=== PATIENT | male | born 1945 | race Two or more races ===

== ENCOUNTER 2016-02-27 14:06 | Emergency (ER) | payer MEDICARE, MEDICAID ==
[~2016-02-27 14:06] MED LIST: /CELE20CA OR; /FENO48TA OR; /METH500TA OR; CETI5TAB2 OR; FISH1000 OR; LIPI10TA OR; MULTIVIT OR; NABU500T OR; PRIL20CA OR; vicoden PO
--- NOTE | 2016-02-27 14:53 | EDDOCDS ---
Physician Documentation [facility] Name: Jonnie Clark Age: 70 yrs Sex: Male : 1945 Arrival Date: 02/27/2016 Time: 14:06 Bed TR7 Private MD: Mauro Almodovar MD Disposition: 02/27/16 14:43 Discharged to Home/Self Care. Impression: Encounter for change or removal of surgical wound dressing, Paresthesia of skin. - Condition is Stable. - Discharge Instructions: Dressing Change, Idmc-ln-Wbgu, Incision Care, Flyj-si-Nuko, Paresthesia, Aofj-sa-Kaap. - Medication Reconciliation, Local Pharmacy Hours form. - Follow up: Mauro Almodovar; When: Call to arrange an appointment; Reason: Further diagnostic work-up, Recheck today's complaints, Continuance of care. Follow up: [facility] ([facility]); When: As previously arranged; Reason: Further diagnostic work-up, Recheck today's complaints, Continuance of care. - Problem is new. - Symptoms are unchanged. Historical: - Allergies: no known allergies; - Home Meds: 1. allopurinol 100 mg oral tab 2 times per day 2. Lipitor 40 mg oral tab once daily 3. omeprazole 40 mg oral cpDR once daily 4. aspirin 81 mg Oral tab once daily 5. Fish Oil Oral twice a day 6. oxycodone-acetaminophen 10-325 mg Oral tab has not taken since surgery 7. Aleve 220 mg oral cap as needed (Last dose: 02/27/2016) - PMHx: Gout; Hypercholesterolemia; - PSHx: back surgery; neck fusion; tendon repair- right leg; right shoulder; left shoulder; - Social history: Smoking status: Patient states former smoker of tobacco. No barriers to communication noted, The patient speaks fluent [place] Citizen, Speaks appropriately for age. - Family history: Not pertinent. - : Exposure Risk Screening: None identified. Home medication list is obtained from the patient. Vital Signs: 02/26 14:10 BP 84 / 67; Pulse 96; Resp 18 S; Temp 98.7(O); Pulse Ox 97% on R/A; Weight 129.73 kg / gr2 286.01 lbs (R); Height 6 ft. 0 in. (182.88 cm) (R); Pain 2/10; 14:18 BP 133 / 72; ead 14:10 Body Mass Index 38.79 (129.73 kg, 182.88 cm) gr2 MDM: 14:42 Financial registration complete. lg Signatures: Melania Garland, Reg Reg lg Earl Nash PA PA btw Jennifer Draper,RN RN ead MTDD
--- NOTE | 2016-02-27 14:53 | EDDOCDS ---
Nurse's Notes [facility] Name: Jonnie Clark Age: 70 yrs Sex: Male : 1945 Arrival Date: 02/27/2016 Time: 14:06 Bed TR7 Private MD: Mauro Almodovar MD Diagnosis: Encounter for change or removal of surgical wound dressing;Paresthesia of skin Presentation: 02/26 14:14 Presenting complaint: Patient states: pt had right shoulder operation on Saturday by Gregorio Montalvo at [facility]. Pt states he is unable to perform dressing changes at home. Pt also reporting numbness in right pinky and ring finger, has decreased since operation. Adult Sepsis Screening: The patient does not have new or worsening altered mentation. Patient's respiratory rate is less than 22. Systolic blood pressure is less than or equal to 100 (1 point). Patient has a qSOFA score of 1- Negative Sepsis Screen. Suicide/Homicide risk assessment- the patient denies having any suicidal and/or homicidal ideations and does not present with any other emotional, behavioral or mental health complaints. 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 Transition of care: patient was not received from another setting of care. 14:14 Method Of Arrival: Walkin/Carried/Asstd ead 14:14 Acuity: ERMELINDA Level 3 ead Triage Assessment: 14:18 General: Appears in no apparent distress, comfortable, Behavior is appropriate for age, ead cooperative. Neurological: Level of Consciousness is awake, alert, obeys commands, Oriented to person, place, time. Respiratory: Airway is patent Respiratory effort is even, unlabored. Derm: Skin is pink, warm & dry. Musculoskeletal: pt has shoulder sling and immobilizer to right shoulder. 14:18 Pain: Denies pain. Derm: incision sites to right shoulder show no drainage, stitches in ead place. Historical: - Allergies: no known allergies; - Home Meds: 1. allopurinol 100 mg oral tab 2 times per day 2. Lipitor 40 mg oral tab once daily 3. omeprazole 40 mg oral cpDR once daily 4. aspirin 81 mg Oral tab once daily 5. Fish Oil Oral twice a day 6. oxycodone-acetaminophen 10-325 mg Oral tab has not taken since surgery 7. Aleve 220 mg oral cap as needed (Last dose: 02/27/2016) - PMHx: Gout; Hypercholesterolemia; - PSHx: back surgery; neck fusion; tendon repair- right leg; right shoulder; left shoulder; - Social history: Smoking status: Patient states former smoker of tobacco. No barriers to communication noted, The patient speaks fluent Bermudian, Speaks appropriately for age. - Family history: Not pertinent. - : Exposure Risk Screening: None identified. Home medication list is obtained from the patient. Screenin:51 Screening information is obtained from the patient. Fall risk: No risks identified. ead Assistance ADL's: requires no assistance with activities of daily living. Abuse/DV Screen: The patient / caregiver reports he/she is: not in a situation that causes fear, pain or injury. Nutritional screening: No deficits noted. home support is adequate. 14:52 Advance Directives: Currently, there is no health care proxy. There is no Power of ead Special Inspector. Assessment: 14:51 General: Appears in no apparent distress, comfortable, Behavior is appropriate for age, ead cooperative. Respiratory: Airway is patent Respiratory effort is even, unlabored. Derm: Skin is pink, warm & dry. Vital Signs: 14:10 BP 84 / 67; Pulse 96; Resp 18 S; Temp 98.7(O); Pulse Ox 97% on R/A; Weight 129.73 kg gr2 (R); Height 6 ft. 0 in. (182.88 cm) (R); Pain 2/10; 14:18 BP 133 / 72; ead 14:10 Body Mass Index 38.79 (129.73 kg, 182.88 cm) gr2 Vitals: 14:10 Log In Time: February 27, 2016 at 14:10. gr2 ED Course: 14:09 Patient visited by Roseanne Ovalles. gr2 14:09 Mauro Almodovar is Private Physician. gr2 14:09 Patient moved to Waiting gr2 14:12 Patient visited by Roseanne Ovalles. gr2 14:12 Patient moved to Pre RCE gr2 14:13 Patient moved to Triage 1 jc4 14:17 Earl Nash PA is PHCP. btw 14:17 Avi Parham DO is Attending Physician. btw 14:17 Triage Initiated ead 14:18 Patient visited by Earl Nash PA. btw 14:42 Mauro Almodovar is Referral Physician. btw 14:43 [facility] ([facility]) is Referral Physician. btw 14:50 Patient moved to TR7 ar3 14:51 The patient / caregiver is instructed regarding the plan of care and ED course. ead 14:51 No IV's were initiated during this patient's visit. No procedures done that require ead assistance. Order Results: There are currently no results for this order. Outcome: 14:43 Discharge ordered by Provider. btw 14:51 Discharge Assessment: Patient awake and alert. obeys commands, Oriented to person, ead place and time. patient administered narcotics - no. The following High Risk Discharge criteria are identified: None. Discharged to home ambulatory. Condition: unchanged. Discharge instructions given to patient, Instructed on discharge instructions, follow up and referral plans. Demonstrated understanding of instructions, Pt was receptive of discharge instructions/ teaching. No special radiology studies were completed. Property sent home with patient. 14:52 Patient left the ED. ead Signatures: Mireille Xavier, ELIO REMOTE MEDICAL CODER ar3 Earl Nash PA PA btw Khushbu Sher, RN RN jc4 Roseanne Ovalles 2 Jennifer Draper,RN RN ead MTDD
--- NOTE | 2016-02-29 15:53 | EDDOCDS ---
Nurse's Notes [facility] Name: Jonnie Clark Age: 70 yrs Sex: Male : 1945 Arrival Date: 02/27/2016 Time: 14:06 Bed TR7 Private MD: Mauro Almodovar MD Diagnosis: Encounter for change or removal of surgical wound dressing;Paresthesia of skin Presentation: 02/26 14:14 Presenting complaint: Patient states: pt had right shoulder operation on Saturday by Gregorio Montalvo at [facility]. Pt states he is unable to perform dressing changes at home. Pt also reporting numbness in right pinky and ring finger, has decreased since operation. Adult Sepsis Screening: The patient does not have new or worsening altered mentation. Patient's respiratory rate is less than 22. Systolic blood pressure is less than or equal to 100 (1 point). Patient has a qSOFA score of 1- Negative Sepsis Screen. Suicide/Homicide risk assessment- the patient denies having any suicidal and/or homicidal ideations and does not present with any other emotional, behavioral or mental health complaints. 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 Transition of care: patient was not received from another setting of care. 14:14 Method Of Arrival: Walkin/Carried/Asstd ead 14:14 Acuity: ERMELINDA Level 3 ead Triage Assessment: 14:18 General: Appears in no apparent distress, comfortable, Behavior is appropriate for age, ead cooperative. Neurological: Level of Consciousness is awake, alert, obeys commands, Oriented to person, place, time. Respiratory: Airway is patent Respiratory effort is even, unlabored. Derm: Skin is pink, warm & dry. Musculoskeletal: pt has shoulder sling and immobilizer to right shoulder. 14:18 Pain: Denies pain. Derm: incision sites to right shoulder show no drainage, stitches in ead place. Historical: - Allergies: no known allergies; - Home Meds: 1. allopurinol 100 mg oral tab 2 times per day 2. Lipitor 40 mg oral tab once daily 3. omeprazole 40 mg oral cpDR once daily 4. aspirin 81 mg Oral tab once daily 5. Fish Oil Oral twice a day 6. oxycodone-acetaminophen 10-325 mg Oral tab has not taken since surgery 7. Aleve 220 mg oral cap as needed (Last dose: 02/27/2016) - PMHx: Gout; Hypercholesterolemia; - PSHx: back surgery; neck fusion; tendon repair- right leg; right shoulder; left shoulder; - Social history: Smoking status: Patient states former smoker of tobacco. No barriers to communication noted, The patient speaks fluent Monegasque, Speaks appropriately for age. - Family history: Not pertinent. - : Exposure Risk Screening: None identified. Home medication list is obtained from the patient. Screenin:51 Screening information is obtained from the patient. Fall risk: No risks identified. ead Assistance ADL's: requires no assistance with activities of daily living. Abuse/DV Screen: The patient / caregiver reports he/she is: not in a situation that causes fear, pain or injury. Nutritional screening: No deficits noted. home support is adequate. 14:52 Advance Directives: Currently, there is no health care proxy. There is no Power of ead [employer]. Assessment: 14:51 General: Appears in no apparent distress, comfortable, Behavior is appropriate for age, ead cooperative. Respiratory: Airway is patent Respiratory effort is even, unlabored. Derm: Skin is pink, warm & dry. Vital Signs: 14:10 BP 84 / 67; Pulse 96; Resp 18 S; Temp 98.7(O); Pulse Ox 97% on R/A; Weight 129.73 kg gr2 (R); Height 6 ft. 0 in. (182.88 cm) (R); Pain 2/10; 14:18 BP 133 / 72; ead 14:10 Body Mass Index 38.79 (129.73 kg, 182.88 cm) gr2 Vitals: 14:10 Log In Time: February 27, 2016 at 14:10. gr2 ED Course: 14:09 Patient visited by Roseanne Ovalles. gr2 14:09 Mauro Almodovar is Private Physician. gr2 14:09 Patient moved to Waiting gr2 14:12 Patient visited by Roseanne Ovalles. gr2 14:12 Patient moved to Pre RCE gr2 14:13 Patient moved to Triage 1 jc4 14:17 Earl Nash PA is PHCP. btw 14:17 Avi Parham DO is Attending Physician. btw 14:17 Triage Initiated ead 14:18 Patient visited by Earl Nash PA. btw 14:42 Mauro Almodovar is Referral Physician. btw 14:43 [facility] ([facility]) is Referral Physician. btw 14:50 Patient moved to TR7 ar3 14:51 The patient / caregiver is instructed regarding the plan of care and ED course. ead 14:51 No IV's were initiated during this patient's visit. No procedures done that require ead assistance. 15:24 [facility] Payment Agreement was scanned into [employer] and attached to record. lg 02/27 03:56 T-Sheet-- Draft Copy was scanned into [employer] and attached to record. hs2 11:11 T-Sheet-- Draft Copy was scanned into [employer] and attached to record. gb Order Results: There are currently no results for this order. Outcome: 02/26 14:43 Discharge ordered by Provider. btw 14:51 Discharge Assessment: Patient awake and alert. obeys commands, Oriented to person, ead place and time. patient administered narcotics - no. The following High Risk Discharge criteria are identified: None. Discharged to home ambulatory. Condition: unchanged. Discharge instructions given to patient, Instructed on discharge instructions, follow up and referral plans. Demonstrated understanding of instructions, Pt was receptive of discharge instructions/ teaching. No special radiology studies were completed. Property sent home with patient. 14:52 Patient left the ED. ead Signatures: Luanne Crawford, Reg Reg gb Melania Garland, Reg Reg lg Mireille Xavier, [employer] SPECIAL EDUCATION TEACHER [employer] SPECIAL EDUCATION TEACHER ar3 Earl Nash PA PA btw Khushbu Sher RN RN jc4 Roseanne Ovalles 2 Jennifer Draper RN RN ead Tasha Edouard, Reg Reg hs2 Chart Complete MTDD
--- NOTE | 2016-02-29 15:53 | EDDOCDS ---
Physician Documentation [facility] Name: Jonnie Clark Age: 70 yrs Sex: Male : 1945 Arrival Date: 02/27/2016 Time: 14:06 Bed TR7 Private MD: Mauro Almodovar MD Disposition: 02/27/16 14:43 Discharged to Home/Self Care. Impression: Encounter for change or removal of surgical wound dressing, Paresthesia of skin. - Condition is Stable. - Discharge Instructions: Dressing Change, Rvry-qn-Sxwp, Incision Care, Abkl-dg-Npjd, Paresthesia, Azsu-aw-Cwhd. - Medication Reconciliation, Local Pharmacy Hours form. - Follow up: Mauro Almodovar; When: Call to arrange an appointment; Reason: Further diagnostic work-up, Recheck today's complaints, Continuance of care. Follow up: [facility] ([facility]); When: As previously arranged; Reason: Further diagnostic work-up, Recheck today's complaints, Continuance of care. - Problem is new. - Symptoms are unchanged. Historical: - Allergies: no known allergies; - Home Meds: 1. allopurinol 100 mg oral tab 2 times per day 2. Lipitor 40 mg oral tab once daily 3. omeprazole 40 mg oral cpDR once daily 4. aspirin 81 mg Oral tab once daily 5. Fish Oil Oral twice a day 6. oxycodone-acetaminophen 10-325 mg Oral tab has not taken since surgery 7. Aleve 220 mg oral cap as needed (Last dose: 02/27/2016) - PMHx: Gout; Hypercholesterolemia; - PSHx: back surgery; neck fusion; tendon repair- right leg; right shoulder; left shoulder; - Social history: Smoking status: Patient states former smoker of tobacco. No barriers to communication noted, The patient speaks fluent Peruvian, Speaks appropriately for age. - Family history: Not pertinent. - : Exposure Risk Screening: None identified. Home medication list is obtained from the patient. Vital Signs: 02/26 14:10 BP 84 / 67; Pulse 96; Resp 18 S; Temp 98.7(O); Pulse Ox 97% on R/A; Weight 129.73 kg / gr2 286.01 lbs (R); Height 6 ft. 0 in. (182.88 cm) (R); Pain 03/30; 14:18 BP 133 / 72; ead 14:10 Body Mass Index 38.79 (129.73 kg, 182.88 cm) gr2 MDM: 14:42 Financial registration complete. lg 15:24 [facility] Payment Agreement was scanned into [employer] and attached to record. lg 02/27 03:56 T-Sheet-- Draft Copy was scanned into [employer] and attached to record. hs2 11:11 T-Sheet-- Draft Copy was scanned into [employer] and attached to record. gb Signatures: Luanne Crawford, Reg Reg gb Melania Garland, Reg Reg lg Earl Nash PA PA btw Dunaway, Emily, RN RN eaTasha Natarajan, Reg Reg hs2 The chart was reviewed and I authenticate all verbal orders and agree with the evaluation and treatment provided.Attachments: 02/26 15:24 [facility] Payment Agreement lg 11:11 T-Sheet-- Draft Copy gb Chart Complete MTDD
--- NOTE | 2016-02-29 15:53 | EDDOCDS ---
Physician Documentation [facility] Name: Jonnie Clark Age: 70 yrs Sex: Male : 1945 Arrival Date: 02/27/2016 Time: 14:06 Bed TR7 Private MD: Mauro Almodovar MD Disposition: 02/27/16 14:43 Discharged to Home/Self Care. Impression: Encounter for change or removal of surgical wound dressing, Paresthesia of skin. - Condition is Stable. - Discharge Instructions: Dressing Change, Znme-lh-Gbyf, Incision Care, Xvbf-gl-Ubwp, Paresthesia, Wzwz-ug-Cgiw. - Medication Reconciliation, Local Pharmacy Hours form. - Follow up: Mauro Almodovar; When: Call to arrange an appointment; Reason: Further diagnostic work-up, Recheck today's complaints, Continuance of care. Follow up: [facility] ([facility]); When: As previously arranged; Reason: Further diagnostic work-up, Recheck today's complaints, Continuance of care. - Problem is new. - Symptoms are unchanged. Historical: - Allergies: no known allergies; - Home Meds: 1. allopurinol 100 mg oral tab 2 times per day 2. Lipitor 40 mg oral tab once daily 3. omeprazole 40 mg oral cpDR once daily 4. aspirin 81 mg Oral tab once daily 5. Fish Oil Oral twice a day 6. oxycodone-acetaminophen 10-325 mg Oral tab has not taken since surgery 7. Aleve 220 mg oral cap as needed (Last dose: 02/27/2016) - PMHx: Gout; Hypercholesterolemia; - PSHx: back surgery; neck fusion; tendon repair- right leg; right shoulder; left shoulder; - Social history: Smoking status: Patient states former smoker of tobacco. No barriers to communication noted, The patient speaks fluent Albanian, Speaks appropriately for age. - Family history: Not pertinent. - : Exposure Risk Screening: None identified. Home medication list is obtained from the patient. Vital Signs: 02/26 14:10 BP 84 / 67; Pulse 96; Resp 18 S; Temp 98.7(O); Pulse Ox 97% on R/A; Weight 129.73 kg / gr2 286.01 lbs (R); Height 6 ft. 0 in. (182.88 cm) (R); Pain 03/30; 14:18 BP 133 / 72; ead 14:10 Body Mass Index 38.79 (129.73 kg, 182.88 cm) gr2 MDM: 14:42 Financial registration complete. lg 15:24 [facility] Payment Agreement was scanned into [employer] and attached to record. lg 02/27 03:56 T-Sheet-- Draft Copy was scanned into [employer] and attached to record. hs2 11:11 T-Sheet-- Draft Copy was scanned into [employer] and attached to record. gb Signatures: Luanne Crawford, Reg Reg gb Melania Garland, Reg Reg lg Earl Nash PA PA btw Dunaway, Emily, RN RN eaTasha Natarajan, Reg Reg hs2 The chart was reviewed and I authenticate all verbal orders and agree with the evaluation and treatment provided.Attachments: 02/26 15:24 [facility] Payment Agreement lg 11:11 T-Sheet-- Draft Copy gb Chart Complete MTDD
== END 2016-02-27 14:52 | disposition home or self-care (01) ==
LOC: M ED 14:06
DX: R20.2 Paresthesia of skin (principal); Z48.01 Encounter for change or removal of surgical wound dressing; M10.9 Gout, unspecified; E78.00 Pure hypercholesterolemia, unspecified; Z87.39 Personal history of other diseases of the musculoskeletal system and connective tissue; Z87.891 Personal history of nicotine dependence; Z79.82 Long term (current) use of aspirin; Z79.899 Other long term (current) drug therapy

== ENCOUNTER 2016-03-16 12:19 | Outpatient (RCR) | payer MEDICARE, MEDICAID | END 2016-03-20 | LOC: M PT 12:19 | PROVIDERS: ATTEND Orthopaedic Surgery | DX: Z51.89 Encounter for other specified aftercare (principal); S46.011D Strain of muscle(s) and tendon(s) of the rotator cuff of right shoulder, subsequent encounter; Z98.890 Other specified postprocedural states; Y93.9 Activity, unspecified; Y92.9 Unspecified place or not applicable; Y99.9 Unspecified external cause status; X58.XXXD Exposure to other specified factors, subsequent encounter | CPT/HCPCS: 97110; 97140; 97161; G8984; G8985 ==

== ENCOUNTER → 2016-04-04 | Outpatient (CLI) | payer MEDICARE, MEDICAID ==
--- NOTE | 2016-04-04 10:37 | REP ---
Clinical: Renal lesion. Technique: Real time zendejas scale and color evaluation using curved array transducer. Findings: The bilateral kidneys are relatively normal in contour, size, echogenicity, and reniform shape without hydronephrosis, nephrolithiasis, perinephric collection, or renal mass lesion. Right kidney measures 12.7 x 4.8 x 4.5 cm and includes 1.4 cm simple upper pole cyst. Left kidney measures 12.6 x 5.6 x 6.2 cm without cyst. Bladder is incompletely distended and grossly unremarkable. Prostate gland measures approximately 3.7 x 3.4 x 2.7 cm. Impression: 1.4 cm simple cyst upper pole right kidney. Otherwise unremarkable renal ultrasound. Signed by Kevin Whipple MD 04/04/2016 10:30 A
--- NOTE | 2016-04-04 15:21 | REP ---
DUPLEX DOPPLER VENOUS ULTRASOUND BILATERAL LOWER EXTREMITIES WITH EVALUATION FOR VENOUS REFLUX: Real-time compression and duplex Doppler interrogation of bilateral lower extremities deep venous systems is performed. Bilaterally, common femoral, superficial femoral and popliteal veins are fully compressible with transducer pressure and demonstrate normal spontaneous and phasic flow without evidence of deep venous thrombosis. Evaluation for venous reflux in the right lower extremity demonstrates reflux in the common femoral vein. There is no evidence of an anterior accessory greater saphenous vein. There is reflux in the greater saphenous vein at the saphenofemoral junction with a duration of 3.3 seconds, diameter of that vessel is 7 mm. There is no reflux in the greater saphenous vein at the mid thigh which has a diameter of 5 mm, nor in the greater saphenous vein at the level of the knee which has a diameter of 4 mm. There is reflux in the proximal and mid superficial femoral vein. There is no reflux in the distal superficial femoral vein, popliteal vein or lesser saphenous vein, which has a diameter of 4 mm. Multiple collateral vessels are seen communicating with the proximal to mid greater saphenous vein, with minimal reflux. Evaluation for reflux in the left lower extremity demonstrates reflux in the common femoral vein. There is no anterior accessory greater saphenous vein present. There is reflux in the greater saphenous vein at the saphenofemoral junction with a duration of 2.5 seconds, AP diameter of that vessel is 5 mm. There is no reflux in the greater saphenous vein at the mid thigh level which has a diameter of 4 mm, nor in the greater saphenous vein at the knee which has a diameter of 3 mm. There is reflux throughout the superficial femoral vein, in the popliteal vein as well as in the lesser saphenous vein, with the duration of reflux in the lesser saphenous vein 4.5 seconds, with a diameter of 5 mm. Multiple small collateral vessels are seen with minimal reflux at the proximal greater saphenous vein. Greater saphenous vein below the knee demonstrates reflux of 4.3 seconds duration, diameter is 3 mm. There is a signals collection technician seen extending from the deep vein system to the greater saphenous vein. Signed by Freedom Ash MD 04/05/2016 09:48 A
== END ==
LOC: M RAD 09:22
PROVIDERS: ATTEND Nurse Practitioner Family
DX: I73.9 Peripheral vascular disease, unspecified (principal); N28.1 Cyst of kidney, acquired; M54.5 Low back pain; E78.5 Hyperlipidemia, unspecified

== ENCOUNTER 2016-04-11 12:31 | Outpatient (RCR) | payer MEDICARE, MEDICAID | END 2016-04-17 | LOC: M PT 12:31 | PROVIDERS: ATTEND Orthopaedic Surgery | DX: Z51.89 Encounter for other specified aftercare (principal); S46.011D Strain of muscle(s) and tendon(s) of the rotator cuff of right shoulder, subsequent encounter; Y93.9 Activity, unspecified; Y92.9 Unspecified place or not applicable; Y99.9 Unspecified external cause status; X58.XXXD Exposure to other specified factors, subsequent encounter; Z98.890 Other specified postprocedural states | CPT/HCPCS: 97110; 97140; G8984; G8985 ==

== ENCOUNTER → 2016-04-25 | Outpatient (POV) | payer MEDICARE, MEDICAID | LOC: M IRPOV 12:08 | PROVIDERS: ATTEND Nurse Practitioner Family | DX: I83.813 Varicose veins of bilateral lower extremities with pain (principal); I83.893 Varicose veins of bilateral lower extremities with other complications ==

== ENCOUNTER → 2016-05-18 | Outpatient (RCR) | payer MEDICARE, MEDICAID | LOC: M PT 04-18 12:31 | PROVIDERS: ATTEND Orthopaedic Surgery | DX: Z51.89 Encounter for other specified aftercare (principal); S46.011D Strain of muscle(s) and tendon(s) of the rotator cuff of right shoulder, subsequent encounter; Y93.9 Activity, unspecified; Y92.9 Unspecified place or not applicable; Y99.9 Unspecified external cause status; X58.XXXD Exposure to other specified factors, subsequent encounter; Z98.890 Other specified postprocedural states | CPT/HCPCS: 97110; 97140; G8984; G8985 ==

== ENCOUNTER 2016-06-15 12:17 | Outpatient (RCR) | payer MEDICARE, MEDICAID | END 2016-06-17 | LOC: M PT 12:17 | PROVIDERS: ATTEND Orthopaedic Surgery | DX: Z51.89 Encounter for other specified aftercare (principal); S46.011D Strain of muscle(s) and tendon(s) of the rotator cuff of right shoulder, subsequent encounter; X58.XXXD Exposure to other specified factors, subsequent encounter; Z98.890 Other specified postprocedural states; Y93.9 Activity, unspecified; Y92.9 Unspecified place or not applicable; Y99.9 Unspecified external cause status | CPT/HCPCS: 97110; G8984; G8985; G8986 ==

== ENCOUNTER → 2016-08-09 | Outpatient (REF) | payer MEDICARE, MEDICAID ==
[2016-08-09 12:20] LABS: ALBUMIN 3.6 GM/DL (3.2-5.2); ALKALINE PHOSPHATASE 103 U/L (45-117); ALT/SGPT 20 U/L (12-78); ANION GAP 8 MEQ/L (8-16); AST/SGOT 18 U/L (15-37); BILIRUBIN,TOTAL 0.7 MG/DL (0.2-1.0); BLOOD UREA NITROGEN 11 MG/DL (7-18); CALCIUM LEVEL 8.6 MG/DL (8.8-10.2); CARBON DIOXIDE LEVEL 28 MEQ/L (21-32); CHLORIDE LEVEL 104 MEQ/L (98-107); CHOLESTEROL LEVEL 123 MG/DL (<200); CREATININE FOR GFR 0.98 MG/DL (0.70-1.30); GLOMERULAR FILTRATION RATE > 60.0 (>49); GLUCOSE, FASTING 114 MG/DL (80-110); POTASSIUM SERUM 3.7 MEQ/L (3.5-5.1); SODIUM LEVEL 140 MEQ/L (136-145); TOTAL PROTEIN 6.6 GM/DL (6.4-8.2); TRIGLYCERIDES LEVEL 146 MG/DL (<150); URIC ACID 5.9 MG/DL (3.5-7.2)
== END ==
LOC: M SFHCPLAZ 07:42
PROVIDERS: ATTEND Nurse Practitioner Family
DX: E78.5 Hyperlipidemia, unspecified (principal); I73.9 Peripheral vascular disease, unspecified; Z13.1 Encounter for screening for diabetes mellitus; M54.5 Low back pain; E66.01 Morbid (severe) obesity due to excess calories; N28.9 Disorder of kidney and ureter, unspecified; I87.2 Venous insufficiency (chronic) (peripheral); B35.1 Tinea unguium; M10.072 Idiopathic gout, left ankle and foot; Z79.899 Other long term (current) drug therapy

== ENCOUNTER → 2016-08-17 | Outpatient (REF) | payer MEDICARE, MEDICAID | LOC: M SFHCPLAZ 09:15 | PROVIDERS: ATTEND Nurse Practitioner Family | DX: J06.9 Acute upper respiratory infection, unspecified (principal) ==

== ENCOUNTER → 2017-05-08 | Outpatient (REF) | payer MEDICARE, MEDICAID ==
[2017-05-08 11:45] LABS: BASO % 0.6 % (0.0-1.0); EOS # 0.7 10^3/uL (0.0-0.50); EOS % 14.7 % (0.0-3.0); HEMATOCRIT 37.8 % (42.0-52.0); HEMOGLOBIN 13.1 g/dl (14.0-18.0); IMMATURE GRANULOCYTE % 0.2 % (0-3.0); LYMPH # 1.8 10^3/uL (1.5-4.5); LYMPH % 35.7 % (24.0-44.0); MEAN CORPUSCULAR HEMOGLOBIN 30.7 pg (27.0-33.0); MEAN CORPUSCULAR HGB CONC 34.7 g/dl (32.0-36.5); MEAN CORPUSCULAR VOLUME 88.5 fl (80.0-96.0); MONO # 0.5 10^3/uL (0.0-0.8); MONO % 9.1 % (0.0-5.0); NEUTROPHILS % 39.7 % (36.0-66.0); PLATELET COUNT, AUTOMATED 219 10^3/uL (150-450); RED BLOOD COUNT 4.27 10^6/uL (4.30-6.10); RED CELL DISTRIBUTION WIDTH 12.8 % (11.5-14.5)
[2017-05-08 12:04] LABS: ALBUMIN 4.2 GM/DL (3.2-5.2); ALBUMIN/GLOBULIN RATIO 1.27 (1.00-1.93); ALKALINE PHOSPHATASE 116 U/L (45-117); ALT/SGPT 28 U/L (12-78); ANION GAP 9 MEQ/L (8-16); AST/SGOT 25 U/L (7-37); BILIRUBIN,TOTAL 0.8 MG/DL (0.2-1.0); BLOOD UREA NITROGEN 21 MG/DL (7-18); CALCIUM LEVEL 8.5 MG/DL (8.8-10.2); CARBON DIOXIDE LEVEL 28 MEQ/L (21-32); CHLORIDE LEVEL 102 MEQ/L (98-107); CHOLESTEROL LEVEL 114 MG/DL (<200); CHOLESTEROL RISK RATIO 3.166 (<5); CREATININE FOR GFR 1.14 MG/DL (0.70-1.30); GLOMERULAR FILTRATION RATE > 60.0 (>42); GLUCOSE, FASTING 106 MG/DL (70-100); HDL CHOLESTEROL 36 MG/DL (>40); LDL CHOLESTEROL 40.8 MG/DL (<100); NON-HDL-C 78 MG/DL; PSA SCREENING 0.81 NG/ML (< 4.0); SODIUM LEVEL 139 MEQ/L (136-145); TOTAL PROTEIN 7.5 GM/DL (6.4-8.2); TRIGLYCERIDES LEVEL 186 MG/DL (<150); URIC ACID 7.4 MG/DL (3.5-7.2)
== END ==
LOC: M SFHCPLAZ 07:50
DX: M10.072 Idiopathic gout, left ankle and foot (principal); E78.5 Hyperlipidemia, unspecified; N40.1 Benign prostatic hyperplasia with lower urinary tract symptoms
CPT/HCPCS: 84550

== ENCOUNTER → 2017-11-15 | Outpatient (REF) | payer MEDICARE, MEDICAID | LOC: M SFHCPLAZ 10:29 | DX: Z01.818 Encounter for other preprocedural examination (principal); D64.9 Anemia, unspecified; M10.9 Gout, unspecified; Z53.8 Procedure and treatment not carried out for other reasons ==

== ENCOUNTER 2017-11-27 12:11 | Day surgery (SDC) | payer MEDICARE, MEDICAID ==
[~2017-11-27 12:11] MED LIST changes: -/CELE20CA OR; -/FENO48TA OR; -/METH500TA OR; +ACETAMINOPHEN 325 MG TAB PO; -CETI5TAB2 OR; -FISH1000 OR; -LIPI10TA OR; +MIDAZOLAM INJ 2 MG/2 ML VIAL (J2250) As Ordered; -MULTIVIT OR; -NABU500T OR; +PHENYLEPHRINE HCL 10 % OPHTH. SOL 5ML OD; -PRIL20CA OR; -vicoden PO
[2017-11-27] MEDS: LIDOCAINE 3.5 % 1ML OPHTH TOPICAL GEL OU (13:00)
[2017-11-27] MEDS: CYCLOPENTOLATE 2% OPHTH SOLN 2ML BTL OD (13:05)
[2017-11-27] MEDS: TROPICAMIDE 1% OPHTH SOLN 2ML OD (13:05)
[2017-11-27] MEDS: PHENYLEPHRINE 2.5% OPHTH SOL 2ML OD (13:05)
[2017-11-27] MEDS: OFLOXACIN 0.3 % (OCUFLOX) OPTH SOL 5ML OD (13:05)
[2017-11-27] MEDS: ACETYLCHOLINE OPHTH SOLN 1% 2ML (MIOCHOL-E) As Ordered (14:27)
[2017-11-27] MEDS: MOXIFLOXACIN IN BSS 0.25MG/0.25ML INTRACAMERAL INJ (OR EYE ONLY)(J2280) As Ordered (14:27)
[2017-11-27] MEDS: LIDOCAINE 1% SDV 5 ML VIAL As Ordered (14:27)
[2017-11-27] MEDS: BSS with VANC/TOB/EPI for EYE CASES IR (14:27)
[2017-11-27] MEDS: POVIDONE-IODINE 5% OPHTH PREP SOL 30ML As Ordered (14:27)
[2017-11-27] MEDS: HEALON DUET (HEALON 10MG/ML 0.55ML & HEALON ENDOCOAT 30MG/ML 0.85ML) As Ordered (14:27)
[2017-11-27] MEDS: TRIAMCINOLONE PRES FR 40 MG/ML 1ML(TRIESENCE)(OR EYE ONLY)(J3300 PER 1MG) As Ordered (14:27)
[2017-11-27] MEDS ORDERED: TRIMETHOBENZAMIDE 300 MG CAP PO (14:45)
[2017-11-27] MEDS ORDERED: ONDANSETRON 4MG/2ML VIAL (J2405) IV (14:45)
[2017-11-27] MEDS ORDERED: LR 1,000 ML IV (14:45)
[2017-11-27] MEDS: AcetaZOLAMIDE 500 MG ER CAP PO (15:00)
== END 2017-11-27 16:00 | disposition home or self-care (01) ==
LOC: M SDC 12:11
DX: H26.9 Unspecified cataract (principal); E78.00 Pure hypercholesterolemia, unspecified; M10.9 Gout, unspecified; K21.9 Gastro-esophageal reflux disease without esophagitis; G47.30 Sleep apnea, unspecified; Z79.82 Long term (current) use of aspirin; Z79.899 Other long term (current) drug therapy
CPT/HCPCS: 66984

== ENCOUNTER 2017-12-04 11:09 | Day surgery (SDC) | payer MEDICARE, MEDICAID ==
[~2017-12-04 11:09] MED LIST changes: -ACETAMINOPHEN 325 MG TAB PO; -MIDAZOLAM INJ 2 MG/2 ML VIAL (J2250) As Ordered; -PHENYLEPHRINE HCL 10 % OPHTH. SOL 5ML OD; +PHENYLEPHRINE HCL 10 % OPHTH. SOL 5ML OS
[2017-12-04] MEDS: CYCLOPENTOLATE 2% OPHTH SOLN 2ML BTL OS (12:49)
[2017-12-04] MEDS: OFLOXACIN 0.3 % (OCUFLOX) OPTH SOL 5ML OS (12:50)
[2017-12-04] MEDS: TROPICAMIDE 1% OPHTH SOLN 2ML OS (12:50)
[2017-12-04] MEDS: LIDOCAINE 3.5 % 1ML OPHTH TOPICAL GEL OU (12:50)
[2017-12-04] MEDS: PHENYLEPHRINE 2.5% OPHTH SOL 2ML OS (12:50)
[2017-12-04] MEDS ORDERED: MIDAZOLAM INJ 2 MG/2 ML VIAL (J2250) As Ordered (13:46)
[2017-12-04] MEDS ORDERED: fentaNYL 100 MCG/2 ML INJECTION (J3010) As Ordered (13:46)
[2017-12-04] MEDS: BSS with VANC/TOB/EPI for EYE CASES IR (14:18)
[2017-12-04] MEDS: LIDOCAINE 1% SDV 5 ML VIAL As Ordered (14:18)
[2017-12-04] MEDS: HEALON DUET (HEALON 10MG/ML 0.55ML & HEALON ENDOCOAT 30MG/ML 0.85ML) As Ordered (14:18)
[2017-12-04] MEDS: MOXIFLOXACIN IN BSS 0.25MG/0.25ML INTRACAMERAL INJ (OR EYE ONLY)(J2280) As Ordered (14:18)
[2017-12-04] MEDS: POVIDONE-IODINE 5% OPHTH PREP SOL 30ML As Ordered ×2 (14:18)
[2017-12-04] MEDS: TRIAMCINOLONE PRES FR 40 MG/ML 1ML(TRIESENCE)(OR EYE ONLY)(J3300 PER 1MG) As Ordered (14:18)
== END 2017-12-04 15:00 | disposition home or self-care (01) ==
LOC: M SDC 11:09
DX: H26.9 Unspecified cataract (principal); G47.30 Sleep apnea, unspecified; M10.9 Gout, unspecified; K21.9 Gastro-esophageal reflux disease without esophagitis; Z87.891 Personal history of nicotine dependence; E78.5 Hyperlipidemia, unspecified; Z79.82 Long term (current) use of aspirin; Z79.899 Other long term (current) drug therapy
CPT/HCPCS: 66984

== ENCOUNTER → 2017-12-17 | Outpatient (CLI) | payer MEDICARE, MEDICAID ==
[2017-12-17 09:59] LABS: HEMATOCRIT 34.8 % (42.0-52.0); HEMOGLOBIN 11.9 g/dl (13.5-17.5); MEAN CORPUSCULAR HEMOGLOBIN 30.7 pg (27.0-33.0); MEAN CORPUSCULAR HGB CONC 34.2 g/dl (32.0-36.5); MEAN CORPUSCULAR VOLUME 89.9 fl (80.0-96.0); PLATELET COUNT, AUTOMATED 202 10^3/uL (150-450); RED BLOOD COUNT 3.87 10^6/uL (4.30-6.10); RED CELL DISTRIBUTION WIDTH 13.4 % (11.5-14.5); WHITE BLOOD COUNT 4.6 10^3/uL (4.0-10.0)
[2017-12-17 10:24] LABS: ANION GAP 7 MEQ/L (8-16); BLOOD UREA NITROGEN 25 MG/DL (7-18); CALCIUM LEVEL 8.6 MG/DL (8.8-10.2); CARBON DIOXIDE LEVEL 27 MEQ/L (21-32); CHLORIDE LEVEL 105 MEQ/L (98-107); CREATININE FOR GFR 1.14 MG/DL (0.70-1.30); GLOMERULAR FILTRATION RATE > 60.0 (>42); GLUCOSE, FASTING 116 MG/DL (70-100); POTASSIUM SERUM 4.2 MEQ/L (3.5-5.1); SODIUM LEVEL 139 MEQ/L (136-145); URIC ACID 5.5 MG/DL (3.5-7.2)
== END ==
LOC: M LAB 08:51
DX: Z01.818 Encounter for other preprocedural examination (principal); D64.9 Anemia, unspecified; M10.9 Gout, unspecified
CPT/HCPCS: 84550

== ENCOUNTER → 2018-10-14 | Outpatient (CLI) | payer MEDICARE ==
[~2018-10-14] MED LIST changes: +ALLO100T PO; +ALLO10TA PO; +ASPI81TA26 PO; +ATOR40TA75 PO; +CELE1CAP4 OR; +CETI5TAB2 OR; +FIBE625T27 PO; +FISH1000 OR; +FISH7.5C PO; +IBUP200T45 PO; +INDA125TA PO; +LIPI10TA OR; +METH1TAB40 OR; +MULT1TAB10 PO; +MULTIVIT OR; +NABU500T OR; +OMEP40CA2 PO; -PHENYLEPHRINE HCL 10 % OPHTH. SOL 5ML OS; +PRIL20CA OR; +TRIC1TAB OR; +vicoden PO
[2018-10-14 12:44] LABS: BLOOD UREA NITROGEN 26 MG/DL (7-18); CREATININE FOR GFR 1.16 MG/DL (0.70-1.30); GLOMERULAR FILTRATION RATE > 60.0 (>42)
== END ==
LOC: M LAB 11:09
PROVIDERS: ATTEND Physician Assistant Surgical
DX: M48.061 Spinal stenosis, lumbar region without neurogenic claudication (principal); M51.36 Other intervertebral disc degeneration, lumbar region; M51.26 Other intervertebral disc displacement, lumbar region

== ENCOUNTER → 2020-03-15 | Outpatient (CLI) | payer MEDICARE, MEDICAID ==
[~2020-03-15] MED LIST changes: -OMEP40CA2 PO; +OMEP40CA97 PO
--- NOTE | 2020-03-15 12:45 | REPVR ---
PROCEDURE INFORMATION: Exam: MR Lumbar Spine Without Contrast. 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 COMPARISON: MRI-Spine, L.S. without con 09/10/2014 10:40 AM FINDINGS: Vertebrae: There is no acute fracture or listhesis. There is severe intervertebral disc space loss at L2/3, L4/5 and L5/S1. Spinal cord: The conus medullaris terminates at T12/L1. The patient has a congenitally narrowed spinal canal. L1-L2: There is diffuse disc bulging. There is mild facet hypertrophy. There is mild canal stenosis, with a residual diameter of 10 mm. The neural foramina are patent. L2-L3: There is dorsal spondylitic ridging. There is moderate to severe facet hypertrophy. There is moderate canal stenosis. There is moderate right neural foraminal narrowing. L3-L4: There is diffuse disc bulging. There is severe facet and ligamentous hypertrophy. There is severe lateral recess and canal stenosis. There is lzjn-kl-vektoroy right and mild left neural foraminal narrowing. L4-L5: There is a diffuse disc osteophyte complex. There is moderate facet hypertrophy. There is moderate bilateral neural foraminal narrowing. L5-S1: There is dorsal spondylitic ridging. There is facet hypertrophy. There is moderate right and moderate to severe left neural foraminal narrowing. Soft tissues: Unremarkable. 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 Changes contribute to multilevel acquired canal stenosis, most pronounced at L3/4, where it is severe. There is multilevel neural foraminal narrowing, most pronounced at L5/S1, where it is moderate on the right and moderate to severe on the left. Electronically signed by: Kaila Humphrey On 03/15/2020 12:44:50 PM
== END ==
LOC: M RAD 11:01
PROVIDERS: ATTEND Family Medicine
DX: M48.062 Spinal stenosis, lumbar region with neurogenic claudication (principal); M51.26 Other intervertebral disc displacement, lumbar region; M51.36 Other intervertebral disc degeneration, lumbar region; M25.78 Osteophyte, vertebrae

== ENCOUNTER → 2020-04-26 | Outpatient (CLI) | payer MEDICARE, MEDICAID ==
--- NOTE | 2020-04-30 01:09 | ECWPNPC ---
PATIENT NAME: CRAIG RAHMAN : 1945 GENDER: MALE VISIT DATE: 04/26/2020 DISCHARGE DATE: 04/26/20 1406 VISIT LOCKED DATE TIME: PHYSICIAN: KAYLEEN PACE RESOURCE: KAYLEEN PACE REASON FOR APPOINTMENT 1. BACK PAIN HISTORY OF PRESENT ILLNESS DEPRESSION SCREENING: PHQ-2 (2015 EDITION) LITTLE INTEREST OR PLEASURE IN DOING THINGS?NOT AT ALL FEELING DOWN, DEPRESSED, OR HOPELESS?NOT AT ALL TOTAL SCORE0 GENERAL: 74-YEAR-OLD GENTLEMAN REFERRED BY PATRICIO PERALTA FOR CHRONIC LOW BACK PAIN WITH LEFT LEG RADICULAR SYMPTOMS. HISTORY OF LUMBAR SURGERY SEVERAL YEARS AGO. PAIN HAS GOTTEN WORSE OVER THE PAST YEAR. PAIN IS AGGRAVATED BY PROLONGED STANDING OR PROLONGED SITTING. HE DOES HAVE APPOINTMENT TO SEE NEUROSURGEON IN 3 MONTHS. HAD NERVE CONDUCTION STUDY OF LEFT LOWER EXTREMITY RECENTLY. DENIES BOWEL OR BLADDER INCONTINENCE. - - -. FALL RISK SCREENING: SCREENING : NO FALLS REPORTED IN THE LAST YEAR , : NO FALLS REPORTED IN THE LAST YEAR. PAIN SCREENING: PATIENT HAS A COMPLAINT OF ACUTE OR CHRONIC PAIN :YES LOCATION OF PAIN:LOW BACK INTENSITY OF PAIN (SCALE OF 1 TO 10):0 WHAT DOES YOUR PAIN FEEL LIKE:SHOOTING DURATION:INTERMITTENT PAIN IS INCREASED BY:ACTIVITIES PAIN IS DECREASED BY:OTHERS HEAT PACK NURSING NOTE: - - -. PAIN CENTER INTAKE QUESTIONS: DO YOU HAVE A HISTORY OF MRSA? :NO DO YOU TAKE A BLOOD THINNERS? :NO DO YOU HAVE ANY BLEEDING DISORDERS? :NO ANY NEW NUMBNESS OR WEAKNESS IN YOUR LEGS OR ARMS? :YES GOES DOWN BOTH LEGS ,LEFT LEG TO KNEE ANY PACEMAKER,DEFIBRILLATOR, OR DORSAL COLUMN STIMULATOR? :NO DO YOU HAVE ANY RASHES OR OPEN SORES? :NO ARE YOU ALLERGIC TO IV DYE? :NO ARE YOU DIABETIC? :NO ANY NEW PROBLEMS WITH YOUR MEDICATIONS? :NO HAVE YOU RECEIVED A VACCINE IN THE PAST 30 DAYS? :NO DO YOU PLAN TO RECEIVE A VACCINE IN THE NEXT 21 DAYS? :NO DO YOU NEED ANY PRESCRIPTION? :NO DO YOU TAKE ANY IMMUNOSUPPRESSIVE MEDICATIONS? :NO CURRENT MEDICATIONS TAKING ONE DAILY - TABLET 1 TABLET ORALLY ONCE A DAY TAKING ASPIRIN 81 MG TABLET 1 TABLET ORALLY ONCE A DAY TAKING LIDOCAINE 5 % OINTMENT APPLY 2-3 GRAMS TOPICALLY TO AFFECTED AREA 3-4 TIMES PER DAY. TAKING FISH OIL 1000 MG CAPSULE 1 CAPSULE ORALLY TWICE DAILY TAKING WALKER - MISCELLANEOUS WITH SEAT EXTERNALLY DAILY DX: M48.062 TAKING ROLLING WALKER 1 1 WITH SEAT HEAVY DUTY DAILY DX: M48.062, NOTES: MEDICAID #: [id number] WEIGHT: 282.8 LBS TAKING ADVIL 200 MG TABLET 2 TABLETS WITH FOOD OR MILK NEEDED ORALLY TWICE A DAY TAKING MAY HAVE - - BATH CHAIR "BIG DIFFERENCE" DAILY. DX: M48.062 AND W18.2X TAKING SHOWER CHAIR WITHOUT WHEELS HEAVY DUTY CHAIR DAILY USE, NOTES: WEIGHT: 290.8 LBS DX: M48.062 AND W18.2X MEDICAID #: [id number] TAKING SLEEP AID 25 MG TABLET 1 TABLET AT BEDTIME NEEDED ORALLY ONCE A DAY TAKING LIPITOR 40 MG TABLET 1 TABLET ORALLY ONCE A DAY TAKING INDAPAMIDE 1.25 MG TABLET 1 TABLET IN THE MORNING ORALLY ONCE A DAY TAKING ALLOPURINOL 100 MG TABLETS 2 TABS IN THE AM, 1 TAB IN THE PM ORALLY BID TAKING OMEPRAZOLE 40 MG CAPSULE DELAYED RELEASE TAKE ONE CAPSULE BY MOUTH EVERY DAY TAKING DUTASTERIDE 0.5 MG CAPSULE 1 CAPSULE ORALLY ONCE A DAY TAKING SENOKOT S 8.6-50 MG TABLET 1 TABLET IN THE EVENING ORALLY ONCE A DAY, HOLD FOR LOOSE STOOL TAKING BARD MALE EXTERNAL CATHETER - MISCELLANEOUS DIRECTED NEEDED FOR TRAVEL BID PRN DX: N40.1, M48.062, NOTES: I HAVENT GO IT YET TAKING ZYRTEC-D ALLERGY & CONGESTION 5-120 MG TABLET EXTENDED RELEASE 12 HOUR 1 TABLET NEEDED ORALLY ONCE A DAY NOT-TAKING SHOWER CHAIR WITHOUT WHEELS DIRECTED BARIATRIC DAILY USE DX M48.062, NOTES: MEDICAID #: [id number] WEIGHT: 282.8 LBS NOT-TAKING BARD [id number]-P-[id number] LEG BAG - MISCELLANEOUS DIRECTED TO USE WITH EXTERNAL CATHETER DAILY PRN DX: N40.1, M48.062 NOT-TAKING SHOWER CHAIR WITHOUT WHEELS DIRECTED DX: M43.17, M48.06 DAILY USE NOT-TAKING METAMUCIL FIBER 51.7 % PACKET DIRECTED ORALLY NOT-TAKING PRILOSEC 40 MG CAPSULE DELAYED RELEASE 1 CAPSULE ORALLY DAILY NOT-TAKING CYCLOBENZAPRINE HCL 10 MG TABLET 1 TABLET NEEDED ORALLY THREE TIMES A DAY MEDICATION LIST REVIEWED AND RECONCILED WITH THE PATIENT PAST MEDICAL HISTORY 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 SURGICAL HISTORY R ELBOW REPAIR 1971 R ACHILLES TENDON REPAIR 1989 LUMBAR DISCECTOMY 1997 C-SPINE FUSION 1997 COLONOSCOPY + EGD (REINDL) - NORMAL EXCEPT FOR DIVERTICOLOSIS AND INTERNAL HEMORRHOIDS 04/2008 L KNEE ARTHROSCOPY (SOUNDS LIKE A MENISCETOMY) 2009 L ROTATOR CUFF REPAIR (SOS) 04/2010 RIGHT ROTATOR CUFF REPAIR 02/24/16 FAMILY HISTORY FATHER: 54 YRS, IN MVA; NO KNOWN MEDICAL PROBLEMS MOTHER: 70S YRS SIBLINGS: SISTERS (5) - 2 ARE - DOESN'T KEEP IN TOUCH WITH THE OTHERS BROTHER (3) - ONE HAS DM, CAD S/P MIS AND A SERIOUS WEIGHT PROBLEM, OTHERS HE DOESN'T KEEP IN TOUCH WITH HAS A STEP-DAUGHTER. SOCIAL HISTORY GENERAL: TOBACCO USE ARE YOU A:: FORMER SMOKER , HOW LONG HAS IT BEEN SINCE YOU LAST SMOKED?: > 10 YEARS. LATEX QUESTIONNAIRE LATEX ALLERGY : HAVE YOU EVER DEVELOPED ANY TYPE OF REACTION AFTER HANDLING LATEX PRODUCTS SUCH RUBBER GLOVES, CONDOMS, DIAPHRAGMS, BALLOONS, SOCKS, OR UNDERWEAR?NO LATEX ALLERGY : HAVE YOU EVER DEVELOPED ANY TYPE OF REACTION DURING OR AFTER DENTAL APPOINTMENT, VAGINAL/RECTAL EXAMINATION, SURGICAL PROCEDURE, OR ANY OTHER EXPOSURE?NO LATEX RISK : HAVE YOU EVER HAD ANY DIFFICULTY BREATHING OR HIVES AFTER EATING OR HANDLING ANY FRUITS, OR VEGETABLES; SUCH KIWI, BANANAS, STONE FRUITS, OR CHESTNUTSNO LATEX RISK : DO YOU HAVE A PREVIOUS PERSONAL HISTORY OF MORE THAN NINE SURGERIES, SPINA BIFIDA, OR REPEATED CATHERIZATIONS? NO LATEX RISK : ARE YOU FREQUENTLY EXPOSED TO LATEX PRODUCTS IN YOUR OCCUPATION?NO DATE ASKED : 04/26/2020 ALCOHOL USE: NO. BMI CARE GOAL FOLLOW-UP ABOVE NORMAL BMI FOLLOW-UPLIFESTYLE EDUCATION REGARDING DIET ALCOHOL SCREENING DID YOU HAVE A DRINK CONTAINING ALCOHOL IN THE PAST YEAR?NO POINTS0 INTERPRETATIONNEGATIVE RECREATIONAL DRUG USE DENIES. CAFFEINE < 1 PER WEEK. SEXUAL HX HAD SEX IN THE LAST 12 MONTHS (VAGINAL, ORAL, OR ANAL)?NO HAVE YOU EVER HAD AN STD?NO HIV / HEP-C SCREENING HIV TEST OFFERED TO PATIENT:NO HEP-C TEST OFFERED TO PATIENT:NO TEMPLE NO ANGLICAN BELIEFS THAT WOULD IMPACT HEALTH CARE. LANGUAGE LANGUAGES SPOKEN:CAPE VERDEAN EDUCATION AA IN WORD PROCESSING. 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 DIET: REGULAR DIET, BUT IS WORKING ON PORTION SIZE NOW, ESSENTIALLY ELIMINATED CHOCOLATE AND SODA. EXERCISE: NO REGULAR EXERCISE, LIMITED BY BACK AND KNEE PAIN. MARITAL STATUS: . OTHERS AT HOME: A CO-RENTER. HOUSING: RENTS APARTMENT. ADVANCE DIRECTIVE ADVANCE DIRECTIVE DISCUSSED WITH PATIENT:YES HE DOESN'T HAVE SOMEONE TO MAKE THESE DECISIONS FOR HIM. HE WILL CONTINUE THINKING ABOUT THIS. HE HAS SOMEONE IN MIND NOW THAT HE MAY TALK TO HOSPITALIZATION/MAJOR DIAGNOSTIC PROCEDURE PEPTIC ULCER ([place]) 1990 BACK PAIN 1997 REVIEW OF SYSTEMS CONSTITUTIONAL: ANY RECENT FEVER NO . CHILLS NO . WEIGHT CHANGE OF UNKNOWN REASONS NO . GASTROENTEROLOGY: NEW UNEXPLAINABLE CHANGES IN BOWEL CONTROL NO . CONSTIPATION NO . GENITOURINARY: ANY NEW CHANGE IN BLADDER CONTROL? NO . NEUROLOGY: NEW ONSET DIZZINESS OR NEUROLOGICAL CHANGES NOT MENTIONED NO . NEW NUMBNESS OR PAIN PATTERNS NOT MENTIONED AND PERTINENT TO TODAY'S VISIT NO . CARDIOLOGY: NEW CHEST PRESSURE NO . PATIENT DENIES NO . RESPIRATORY: UNEXPLAINABLE COUGH NO . NEW SHORTNESS OF BREATH NO . VITAL SIGNS WT 298.0 LBS, HT 73 IN, BMI 39.31 INDEX, BP 148/72 MM HG, HR 77 /MIN, RR 18 /MIN, TEMP 97.3 F, OXYGEN SAT % 95%, SAFE IN ENV? (Y/N) YES, NA INITIALS AW 1306T.BECKY CEDEÑO. EXAMINATION GENERAL EXAMINATION: GENERALNO ACUTE DISTRESS, WELL NOURISHED AND HYDRATED. DIFFICULTY GOING FROM SITTING TO STANDING POSITION. USES WHEELED WALKER.. PSYCHAPPROPRIATE MOOD AND AFFECT . NECK:NO LYMPHADENOPATHY, SUPPLE. LUNGS:CLEAR TO AUSCULTATION BILATERALLY, NO WHEEZES, RHONCHI, RALES. HEART:NO MURMURS, REGULAR RATE AND RHYTHM. MUSCULOSKELETAL:WEAKNESS NOTED IN LOWER EXTREMITIES BILATERALLY. . LUMBAR:WELL-HEALED SURGICAL SCAR L/S AXIS MILD DISCOMFORT WITH PALPATION OF LUMBAR FACET LEFT GREATER THAN RIGHT . EXTREMITIES:2+ EDEMA NOTED LOWER EXTREMITIES BILATERAL. DIAGNOSTIC TESTS REVIEWEDMRI L/S SPINE 2020 . ASSESSMENTS SPINAL STENOSIS, LUMBAR REGION WITH NEUROGENIC CLAUDICATION - M48.062 (PRIMARY) DEGENERATIVE LUMBAR SPINAL STENOSIS - M48.061 TREATMENT SPINAL STENOSIS, LUMBAR REGION WITH NEUROGENIC CLAUDICATION NOTES: CAUDAL EPIDURAL STEROID INJECTION WITH IV SEDATION PRINTED AND REVIEWED PRE PROCEDURE WITH PATIENT CRUZ CEDEÑO. PROCEDURE CODES FA211 ESTABILISHED PATIENT [facility] CHARGE DISPOSITION & COMMUNICATION FOLLOW UP DR Natasha SANDERS APT/POST PROCEDURE KAYLEEN (REASON: CAUDAL EPIDURAL STEROID INJECTION WITH IV SEDATION) ELECTRONICALLY SIGNED BY HEBERT MATIAS ON 04/29/2020 AT 03:26 PM EST DISCLAIMER : THIS IS A VISIT SUMMARY EXTRACTED FROM THE [employer] CHART. IT IS NOT A COPY OF THE [employer] PROGRESS NOTE. ARON
== END ==
LOC: M PAIN 13:00
PROVIDERS: ATTEND Nurse Practitioner Family
DX: M48.062 Spinal stenosis, lumbar region with neurogenic claudication (principal); M48.061 Spinal stenosis, lumbar region without neurogenic claudication; G89.29 Other chronic pain; G47.33 Obstructive sleep apnea (adult) (pediatric); R73.01 Impaired fasting glucose; K21.9 Gastro-esophageal reflux disease without esophagitis; Z87.891 Personal history of nicotine dependence; Z79.82 Long term (current) use of aspirin; Z79.899 Other long term (current) drug therapy

== ENCOUNTER → 2020-04-28 | Outpatient (CLI) | payer MEDICARE, MEDICAID ==
--- NOTE | 2020-05-04 00:17 | ECWPNPC ---
PATIENT NAME: CRAIG RAHMAN : 1945 GENDER: MALE VISIT DATE: 04/28/2020 DISCHARGE DATE: 04/28/20 1507 VISIT LOCKED DATE TIME: PHYSICIAN: IALEEN AGUERO MD RESOURCE: AILEEN AGUERO MD REASON FOR APPOINTMENT 1. PRESEDATE FOR CAUDAL EPIDURAL STEROID INJECTION HISTORY OF PRESENT ILLNESS GENERAL: 74-YEAR-OLD MALE PATIENT WITH A HISTORY OF CHRONIC LOW BACK AND MAINLY LEFT LEG PAIN. HE HAS BEEN SUFFERING FROM THIS FOR MANY YEARS. THE PATIENT DESCRIBES THE PAIN INTERMITTENT, STABBING AND SHOCKING SENSATION WITH A PAIN SCORE RANGING FROM 5-9/10. THE PATIENT INCREASES WITH ACTIVITIES. HE USES A WALKER TO AMBULATE. HE HAS BEEN USING MEDICATION MANAGEMENT AND HE NEEDS HELP. HE HAS A HISTORY OF A BACK SURGERY. FALL RISK SCREENING: SCREENING : PATIENT REPORTS MULTIPLE FALLS THIS YEAR, NONE OF WHICH PATIENT REPORTS NEEDING MEDICAL INTERVENTION.. PAIN SCREENING: PATIENT HAS A COMPLAINT OF ACUTE OR CHRONIC PAIN :YES LOCATION OF PAIN: STARTS IN LOW BACK RADIATING TO LEGS. INTENSITY OF PAIN (SCALE OF 1 TO 10):5 PATIENT REPORTS WITH ACTIVITY 10+ WHAT DOES YOUR PAIN FEEL LIKE:INTERMITTENT, OTHER "SHOCK" "SQUEEZE" PAIN IS INCREASED BY:ACTIVITIES PAIN HAS INTERFERED WITH THE FOLLOWING:WALKING ABILITY PLAN/GOALS/TREATMENT/INTERVENTION/FOLLOW UP:SEE PLAN NURSING NOTE: -. PAIN CENTER INTAKE QUESTIONS: DO YOU HAVE A HISTORY OF MRSA? :NO DO YOU TAKE A BLOOD THINNERS? :NO DO YOU HAVE ANY BLEEDING DISORDERS? :NO ANY NEW NUMBNESS OR WEAKNESS IN YOUR LEGS OR ARMS? :NO ANY PACEMAKER,DEFIBRILLATOR, OR DORSAL COLUMN STIMULATOR? :NO DO YOU HAVE ANY RASHES OR OPEN SORES? :NO ARE YOU ALLERGIC TO IV DYE? :NO ARE YOU DIABETIC? :NO ANY NEW PROBLEMS WITH YOUR MEDICATIONS? :NO HAVE YOU RECEIVED A VACCINE IN THE PAST 30 DAYS? :NO DO YOU PLAN TO RECEIVE A VACCINE IN THE NEXT 21 DAYS? :NO DO YOU NEED ANY PRESCRIPTION? :NO DO YOU TAKE ANY IMMUNOSUPPRESSIVE MEDICATIONS? :NO CURRENT MEDICATIONS TAKING ONE DAILY - TABLET 1 TABLET ORALLY ONCE A DAY TAKING ASPIRIN 81 MG TABLET 1 TABLET ORALLY ONCE A DAY TAKING LIDOCAINE 5 % OINTMENT APPLY 2-3 GRAMS TOPICALLY TO AFFECTED AREA 3-4 TIMES PER DAY. TAKING FISH OIL 1000 MG CAPSULE 1 CAPSULE ORALLY TWICE DAILY TAKING WALKER - MISCELLANEOUS WITH SEAT EXTERNALLY DAILY DX: M48.062 TAKING ROLLING WALKER 1 1 WITH SEAT HEAVY DUTY DAILY DX: M48.062, NOTES: MEDICAID #: [id number] WEIGHT: 282.8 LBS TAKING ADVIL 200 MG TABLET 2 TABLETS WITH FOOD OR MILK NEEDED ORALLY TWICE A DAY TAKING MAY HAVE - - BATH CHAIR "BIG DIFFERENCE" DAILY. DX: M48.062 AND W18.2X TAKING SHOWER CHAIR WITHOUT WHEELS HEAVY DUTY CHAIR DAILY USE, NOTES: WEIGHT: 290.8 LBS DX: M48.062 AND W18.2X MEDICAID #: [id number] TAKING SLEEP AID 25 MG TABLET 1 TABLET AT BEDTIME NEEDED ORALLY ONCE A DAY TAKING LIPITOR 40 MG TABLET 1 TABLET ORALLY ONCE A DAY TAKING INDAPAMIDE 1.25 MG TABLET 1 TABLET IN THE MORNING ORALLY ONCE A DAY TAKING ALLOPURINOL 100 MG TABLETS 2 TABS IN THE AM, 1 TAB IN THE PM ORALLY BID TAKING OMEPRAZOLE 40 MG CAPSULE DELAYED RELEASE TAKE ONE CAPSULE BY MOUTH EVERY DAY TAKING DUTASTERIDE 0.5 MG CAPSULE 1 CAPSULE ORALLY ONCE A DAY TAKING SENOKOT S 8.6-50 MG TABLET 1 TABLET IN THE EVENING ORALLY ONCE A DAY, HOLD FOR LOOSE STOOL TAKING BARD MALE EXTERNAL CATHETER - MISCELLANEOUS DIRECTED NEEDED FOR TRAVEL BID PRN DX: N40.1, M48.062, NOTES: I HAVENT GO IT YET TAKING ZYRTEC-D ALLERGY & CONGESTION 5-120 MG TABLET EXTENDED RELEASE 12 HOUR 1 TABLET NEEDED ORALLY ONCE A DAY NOT-TAKING SHOWER CHAIR WITHOUT WHEELS DIRECTED BARIATRIC DAILY USE DX M48.062, NOTES: MEDICAID #: [id number] WEIGHT: 282.8 LBS NOT-TAKING BARD MLYOUM-S-ICO LEG BAG - MISCELLANEOUS DIRECTED TO USE WITH EXTERNAL CATHETER DAILY PRN DX: N40.1, M48.062 NOT-TAKING SHOWER CHAIR WITHOUT WHEELS DIRECTED DX: M43.17, M48.06 DAILY USE NOT-TAKING METAMUCIL FIBER 51.7 % PACKET DIRECTED ORALLY NOT-TAKING PRILOSEC 40 MG CAPSULE DELAYED RELEASE 1 CAPSULE ORALLY DAILY NOT-TAKING CYCLOBENZAPRINE HCL 10 MG TABLET 1 TABLET NEEDED ORALLY THREE TIMES A DAY MEDICATION LIST REVIEWED AND RECONCILED WITH THE PATIENT PAST MEDICAL HISTORY 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 SURGICAL HISTORY R ELBOW REPAIR 1971 R ACHILLES TENDON REPAIR 1989 LUMBAR DISCECTOMY 1997 C-SPINE FUSION 1997 COLONOSCOPY + EGD (REINDL) - NORMAL EXCEPT FOR DIVERTICOLOSIS AND INTERNAL HEMORRHOIDS 04/2008 L KNEE ARTHROSCOPY (SOUNDS LIKE A MENISCETOMY) 2009 L ROTATOR CUFF REPAIR (SOS) 04/2010 RIGHT ROTATOR CUFF REPAIR 02/24/16 SOCIAL HISTORY GENERAL: TOBACCO USE ARE YOU A:: FORMER SMOKER , HOW LONG HAS IT BEEN SINCE YOU LAST SMOKED?: > 10 YEARS. LATEX QUESTIONNAIRE LATEX ALLERGY : HAVE YOU EVER DEVELOPED ANY TYPE OF REACTION AFTER HANDLING LATEX PRODUCTS SUCH RUBBER GLOVES, CONDOMS, DIAPHRAGMS, BALLOONS, SOCKS, OR UNDERWEAR?NO LATEX ALLERGY : HAVE YOU EVER DEVELOPED ANY TYPE OF REACTION DURING OR AFTER DENTAL APPOINTMENT, VAGINAL/RECTAL EXAMINATION, SURGICAL PROCEDURE, OR ANY OTHER EXPOSURE?NO LATEX RISK : HAVE YOU EVER HAD ANY DIFFICULTY BREATHING OR HIVES AFTER EATING OR HANDLING ANY FRUITS, OR VEGETABLES; SUCH KIWI, BANANAS, STONE FRUITS, OR CHESTNUTSNO LATEX RISK : DO YOU HAVE A PREVIOUS PERSONAL HISTORY OF MORE THAN NINE SURGERIES, SPINA BIFIDA, OR REPEATED CATHERIZATIONS? NO LATEX RISK : ARE YOU FREQUENTLY EXPOSED TO LATEX PRODUCTS IN YOUR OCCUPATION?NO DATE ASKED : 04/28/2020 ALCOHOL USE: NO. BMI CARE GOAL FOLLOW-UP ABOVE NORMAL BMI [facility] REGARDING DIET ALCOHOL SCREENING DID YOU HAVE A DRINK CONTAINING ALCOHOL IN THE PAST YEAR?NO POINTS0 INTERPRETATIONNEGATIVE RECREATIONAL DRUG USE DENIES. CAFFEINE < 1 PER WEEK. SEXUAL HX HAD SEX IN THE LAST 12 MONTHS (VAGINAL, ORAL, OR ANAL)?NO HAVE YOU EVER HAD AN STD?NO HIV / HEP-C SCREENING HIV TEST OFFERED TO PATIENT:NO HEP-C TEST OFFERED TO PATIENT:NO RESTORATION NO ZOROASTRIANISM BELIEFS THAT WOULD IMPACT HEALTH CARE. LANGUAGE LANGUAGES SPOKEN:KITTITIAN EDUCATION AA IN WORD PROCESSING. 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 DIET: REGULAR DIET, BUT IS WORKING ON PORTION SIZE NOW, ESSENTIALLY ELIMINATED CHOCOLATE AND SODA. EXERCISE: NO REGULAR EXERCISE, LIMITED BY BACK AND KNEE PAIN. MARITAL STATUS: . OTHERS AT HOME: A CO-RENTER. HOUSING: RENTS APARTMENT. ADVANCE DIRECTIVE ADVANCE DIRECTIVE DISCUSSED WITH PATIENT:YES HE DOESN'T HAVE SOMEONE TO MAKE THESE DECISIONS FOR HIM. HE WILL CONTINUE THINKING ABOUT THIS. HE HAS SOMEONE IN MIND NOW THAT HE MAY TALK TO HOSPITALIZATION/MAJOR DIAGNOSTIC PROCEDURE PEPTIC ULCER ([place]) 1991 BACK PAIN 1998 REVIEW OF SYSTEMS GLAUCOMA: NOTHYROID DISEASE: NOHYPERTENSION: NOHEART DISEASE: HYPERCHOLESTEROLEMIALUNG DISEASE: OSADIABETES: NOGI DISEASE: IRRITABLE BOWELLIVER DISEASE: NO KIDNEY DISEASE: NOSTERIOD USE: NONEUROLOGICAL DISEASE: NOBACK PROBLEMS: YES, PAINEXTREMITIES: YES, PAINGENITOURINARY: NOBLEEDING DISORDER: NOASA CLASS: IIIAIRWAY CLASS: II. VITAL SIGNS WT 301.0 LBS, HT 73 IN, BMI 39.71 INDEX, BP 168/76 MM HG, HR 82 /MIN, RR 18 /MIN, TEMP 97.2 F, OXYGEN SAT % 96%, SAFE IN ENV? (Y/N) YES, NA INITIALS AW 1334, REVIEWED BY: Blair SANCHEZ QUANTITATIVE CONSULTANT. EXAMINATION GENERAL EXAMINATION: THE PATIENT IS ALERT, ORIENTED TIMES THREE AND COOPERATIVE. LUNGS ARE CLEAR TO AUSCULTATION. HEART SHOWS REGULAR RHYTHM, NO MURMURS AND NO GALLOPS. THERE IS A LOT OF DIFFICULTY STANDING. THE PATIENT HAS AN UNSTEADY GAIT. HE NEEDS THE WALKER TO WALK. HE STAYS IN A BENDING POSITION WHILE WALK-ING. THE PATIENT HAS A VERY LOW SCAR IN THE LUMBAR SPINE. THE PATIENT HAS 2/4 PITTING EDEMA IN BOTH LEGS. THERE IS TENDERNESS IN THE LOWER PARASPINAL MUSCLE GROUP. THE LEFT LEG IS WEAKER THAN THE RIGHT LEG IN FLEXION AND EXTENSION. MRI OF THE LUMBOSACRAL SPINE DATED 03/15/2020 SHOWS FACET ARTHROPATHY CHANGES, SPINAL STENOSIS AT MULTIPLE LEVELS. 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 EM. CLINICAL NOTES: I DISCUSSED ALTERNATIVES WITH MR. RAHMAN. WE AGREE ON DOING A CAUDAL EPIDURAL STEROID INJECTION WITH IV SEDATION DUE TO ANXIETY AND DISCOMFORT ASSOCIATED WITH THE PROCEDURE. THE PATIENT WILL TRY TO GET COPY OF PRIOR SURGICAL OPERATIVE REPORT. THE PATIENT REPORTS UNDERSTANDING AND AGREES WITH THE PLAN. I, ISI WILD, DOCUMENTED THE ABOVE INFORMATION ACTING A SCRIBE FOR DR. AGUERO. I HAVE REVIEWED THE ABOVE DOCUMENT, WRITTEN BY ISI WILD, WASHER MEAT, AND I VERIFY THAT IT IS ACCURATE. . PROCEDURE CODES FA211 ESTABILISHED PATIENT [facility] CHARGE [id number] OFFICE/OUTPATIENT VISIT EST DISPOSITION & COMMUNICATION FOLLOW UP OKAY TO BOOK (REASON: CAUDAL EPIDURAL STEROID INJECTION) ELECTRONICALLY SIGNED BY AILEEN AGUERO MD, MD ON 05/03/2020 AT 11:39 AM EDT DISCLAIMER : THIS IS A VISIT SUMMARY EXTRACTED FROM THE [employer] CHART. IT IS NOT A COPY OF THE [employer] PROGRESS NOTE. ARON
== END ==
LOC: M PAIN 13:30
PROVIDERS: ATTEND Anesthesiology
DX: M51.16 Intervertebral disc disorders with radiculopathy, lumbar region (principal); M48.062 Spinal stenosis, lumbar region with neurogenic claudication; M96.1 Postlaminectomy syndrome, not elsewhere classified; G47.33 Obstructive sleep apnea (adult) (pediatric); R73.01 Impaired fasting glucose; E78.5 Hyperlipidemia, unspecified; K21.9 Gastro-esophageal reflux disease without esophagitis; D64.9 Anemia, unspecified; Z87.891 Personal history of nicotine dependence; Z79.899 Other long term (current) drug therapy; Z79.82 Long term (current) use of aspirin

== ENCOUNTER → 2020-04-29 | Outpatient (CLI) | payer MEDICARE, MEDICAID | LOC: M LABSMTC 13:17 | PROVIDERS: ATTEND Anesthesiology | DX: Z11.52 Encounter for screening for COVID-19 (principal) ==

== ENCOUNTER → 2020-05-04 | Outpatient (CLI) | payer MEDICARE, MEDICAID ==
[~2020-05-04] MED LIST changes: +BUPIVACAINE HCL 0.25% 10ML VIAL As Ordered ONE; +ISOVUE-M 300 61% 15ML VIAL As Ordered ONE; +LIDOCAINE 1% SDV 30ML VIAL As Ordered ONE; +MIDAZOLAM INJ 2MG/2ML VIAL (J2250 PER 1MG) As Ordered ONE; +fentaNYL 100 MCG/2 ML INJECTION (J3010) As Ordered ONE; +methylPREDNISolone SUSP 40MG/ML 1ML VIAL (DEPO MEDROL) As Ordered ONE
--- NOTE | 2020-05-04 15:19 | REP ---
INDICATION: CAUDAL EPIDURAL STEROID INJECTION. COMPARISON: None. TECHNIQUE: Three views. 31.3 seconds of fluoroscopy time is reported. FINDINGS: A sequence of 3 last image hold fluoroscopically obtained spot radiograph(s) of the sacrum and coccyx document(s) needle position(s) and contrast injection associated with injection procedure. IMPRESSION: Procedural imaging. <Electronically signed by Sky Toscano > 05/04/20 [id number]
--- NOTE | 2020-05-06 01:26 | ECWPNPC ---
PATIENT NAME: CRAIG RAHMAN : 1945 GENDER: MALE VISIT DATE: 05/04/2020 DISCHARGE DATE: 05/04/20 1455 VISIT LOCKED DATE TIME: PHYSICIAN: AILEEN AGUERO MD RESOURCE: AILEEN AGUERO MD REASON FOR APPOINTMENT 1. CAUDAL EPIDURAL STEROID INJECTION HISTORY OF PRESENT ILLNESS GENERAL: -. FALL RISK SCREENING: SCREENING STATES HE HAS FALLEN MULTIPLE TIMES WITHOUT INJURY. STATES HE JUST LOSES HIS BALANCE. HE DOES USE A WALKER BUT THIS HAPPENS WHEN HE IS IN AREAS THAT THE WALKER DOESN'T FIT.. PAIN SCREENING: PATIENT HAS A COMPLAINT OF ACUTE OR CHRONIC PAIN :YES LOCATION OF PAIN:LOW BACK, LEG(S) BEHIND LEFT LEG TO THE KNEE AND FRONT OF RIGHT THIGH INTENSITY OF PAIN (SCALE OF 1 TO 10):7 AVERAGE 6-7 WHAT DOES YOUR PAIN FEEL LIKE:CONTINOUS, SHARP, THROBBING, SORE, SHOOTING DURATION:CONTINOUS, CONSTANT PAIN IS INCREASED BY:ACTIVITIES, PROLONGED STANDING WALKING PAIN IS DECREASED BY: LYING DOWN, LEG EXERCISES WITH LYING DOWN, MASSAGING LEG, TENS UNIT IF HE CAN GET SOMEONE TO HELP HIM APPLY IT PAIN HAS INTERFERED WITH THE FOLLOWING: EVERYTHING NURSING NOTE: -. PAIN CENTER INTAKE QUESTIONS: DO YOU HAVE A HISTORY OF MRSA? :NO DO YOU TAKE A BLOOD THINNERS? :NO DO YOU HAVE ANY BLEEDING DISORDERS? :NO ANY NEW NUMBNESS OR WEAKNESS IN YOUR LEGS OR ARMS? :NO ANY PACEMAKER,DEFIBRILLATOR, OR DORSAL COLUMN STIMULATOR? :NO DO YOU HAVE ANY RASHES OR OPEN SORES? :NO PATIENT TOOK OFF SHOE AND REVEALED A LARGE RED SPOT ON INNER RIGHT ANKLE. DR. AGUERO MADE AWARE AND INSTRUCTED PATIENT TO KEEP PRESSURE OFF OF THAT AREA AND MAKE SURE TO KEEP AN EYE ON IT AND ADDRESS THIS WITH HIS PCP. ARE YOU ALLERGIC TO IV DYE? :NO ARE YOU DIABETIC? :NO ANY NEW PROBLEMS WITH YOUR MEDICATIONS? :NO HAVE YOU RECEIVED A VACCINE IN THE PAST 30 DAYS? :NO DO YOU PLAN TO RECEIVE A VACCINE IN THE NEXT 21 DAYS? :NO DO YOU TAKE ANY IMMUNOSUPPRESSIVE MEDICATIONS? :YES ALLOPURINOL LAST DOSE 04/30 ANY HISTORY OF SEIZURES? :NO ANY HISTORY OF CARDIAC ISSUES OR EVENTS? :NO DO YOU HAVE ANY KIDNEY OR LIVER DISEASE? :NO DO YOU HAVE SLEEP APNEA? :YES DO YOU WEAR A CPAP?YES ANY RECENT HEAD INJURY? :NO DO YOU HAVE ANY NEW INFECTIONS? :NO IS THERE A CHANCE YOU COULD BE ? :NO ARE YOU BREAST FEEDING? :NO WHEN DID YOU LAST EAT? : 1999 WHEN DID YOU LAST DRINK? : 899 WHAT DID YOU LAST DRINK? : WHITE-GRAPE JUICE NAME OF PERSON DRIVING YOU HOME? : TOMASA RAYNE DO YOU HAVE ANY OTHER QUESTIONS OR CONCERNS? : NONE CURRENT MEDICATIONS TAKING ONE DAILY - TABLET 1 TABLET ORALLY ONCE A DAY TAKING ASPIRIN 81 MG TABLET 1 TABLET ORALLY ONCE A DAY, NOTES: 05/03/20 0700 TAKING LIDOCAINE 5 % OINTMENT APPLY 2-3 GRAMS TOPICALLY TO AFFECTED AREA 3-4 TIMES PER DAY. TAKING FISH OIL 1000 MG CAPSULE 1 CAPSULE ORALLY TWICE DAILY TAKING WALKER - MISCELLANEOUS WITH SEAT EXTERNALLY DAILY DX: M48.062 TAKING ROLLING WALKER 1 1 WITH SEAT HEAVY DUTY DAILY DX: M48.062, NOTES: MEDICAID #: [id number] WEIGHT: 282.8 LBS TAKING ADVIL 200 MG TABLET 2 TABLETS WITH FOOD OR MILK NEEDED ORALLY TWICE A DAY, NOTES: 0300 TAKING MAY HAVE - - BATH CHAIR "BIG DIFFERENCE" DAILY. DX: M48.062 AND W18.2X TAKING SHOWER CHAIR WITHOUT WHEELS HEAVY DUTY CHAIR DAILY USE, NOTES: WEIGHT: 290.8 LBS DX: M48.062 AND W18.2X MEDICAID #: [id number] TAKING SLEEP AID 25 MG TABLET 1 TABLET AT BEDTIME NEEDED ORALLY ONCE A DAY TAKING LIPITOR 40 MG TABLET 1 TABLET ORALLY ONCE A DAY TAKING INDAPAMIDE 1.25 MG TABLET 1 TABLET IN THE MORNING ORALLY ONCE A DAY, NOTES: 05/03/20 0700 TAKING ALLOPURINOL 100 MG TABLETS 2 TABS IN THE AM, 1 TAB IN THE PM ORALLY BID, NOTES: 04/30 TAKING OMEPRAZOLE 40 MG CAPSULE DELAYED RELEASE TAKE ONE CAPSULE BY MOUTH EVERY DAY TAKING DUTASTERIDE 0.5 MG CAPSULE 1 CAPSULE ORALLY ONCE A DAY TAKING SENOKOT S 8.6-50 MG TABLET 1 TABLET IN THE EVENING ORALLY ONCE A DAY, HOLD FOR LOOSE STOOL, NOTES: TAKES NEEDED TAKING BARD MALE EXTERNAL CATHETER - MISCELLANEOUS DIRECTED NEEDED FOR TRAVEL BID PRN DX: N40.1, M48.062, NOTES: I HAVENT GO IT YET TAKING ZYRTEC-D ALLERGY & CONGESTION 5-120 MG TABLET EXTENDED RELEASE 12 HOUR 1 TABLET NEEDED ORALLY ONCE A DAY NOT-TAKING SHOWER CHAIR WITHOUT WHEELS DIRECTED BARIATRIC DAILY USE DX M48.062, NOTES: MEDICAID #: [id number] WEIGHT: 282.8 LBS NOT-TAKING BARD [id number] LEG BAG - MISCELLANEOUS DIRECTED TO USE WITH EXTERNAL CATHETER DAILY PRN DX: N40.1, M48.062 NOT-TAKING SHOWER CHAIR WITHOUT WHEELS DIRECTED DX: M43.17, M48.06 DAILY USE NOT-TAKING METAMUCIL FIBER 51.7 % PACKET DIRECTED ORALLY NOT-TAKING PRILOSEC 40 MG CAPSULE DELAYED RELEASE 1 CAPSULE ORALLY DAILY NOT-TAKING CYCLOBENZAPRINE HCL 10 MG TABLET 1 TABLET NEEDED ORALLY THREE TIMES A DAY MEDICATION LIST REVIEWED AND RECONCILED WITH THE PATIENT PAST MEDICAL HISTORY RAFIQ/CPAP (PULMONARY) IMPAIRED FASTING GLUCOSE SPINAL STENOSIS SYNDROME HYPERLIPIDEMIA, ASCVD 10-YEAR RISK IS 15.8% IN 05/2017 - ON ATORVASTATIN 40MG GERD, ATTEMPTED TO WEAN BACK TO ZANTAC IN 2019, BUT IT DIDN'T WORK ANEMIA ALLERGIC RHINITIS ONOCHOMYCOSIS BILATERAL ANKLE PAIN-SOS- JAGDEEP- ORTHOTICS 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 SOCIAL HISTORY GENERAL: TOBACCO USE ARE YOU A:: FORMER SMOKER , HOW LONG HAS IT BEEN SINCE YOU LAST SMOKED?: > 10 YEARS. LATEX QUESTIONNAIRE LATEX ALLERGY : HAVE YOU EVER DEVELOPED ANY TYPE OF REACTION AFTER HANDLING LATEX PRODUCTS SUCH RUBBER GLOVES, CONDOMS, DIAPHRAGMS, BALLOONS, SOCKS, OR UNDERWEAR?NO LATEX ALLERGY : HAVE YOU EVER DEVELOPED ANY TYPE OF REACTION DURING OR AFTER DENTAL APPOINTMENT, VAGINAL/RECTAL EXAMINATION, SURGICAL PROCEDURE, OR ANY OTHER EXPOSURE?NO LATEX RISK : HAVE YOU EVER HAD ANY DIFFICULTY BREATHING OR HIVES AFTER EATING OR HANDLING ANY FRUITS, OR VEGETABLES; SUCH KIWI, BANANAS, STONE FRUITS, OR CHESTNUTSNO LATEX RISK : DO YOU HAVE A PREVIOUS PERSONAL HISTORY OF MORE THAN NINE SURGERIES, SPINA BIFIDA, OR REPEATED CATHERIZATIONS? NO LATEX RISK : ARE YOU FREQUENTLY EXPOSED TO LATEX PRODUCTS IN YOUR OCCUPATION?NO DATE ASKED : 05/03/2020 ALCOHOL USE: NO. BMI CARE GOAL FOLLOW-UP ABOVE NORMAL BMI FOLLOW-UPLIFESTYLE EDUCATION REGARDING DIET ALCOHOL SCREENING DID YOU HAVE A DRINK CONTAINING ALCOHOL IN THE PAST YEAR?NO POINTS0 INTERPRETATIONNEGATIVE RECREATIONAL DRUG USE DENIES. CAFFEINE < 1 PER WEEK. SEXUAL HX HAD SEX IN THE LAST 12 MONTHS (VAGINAL, ORAL, OR ANAL)?NO HAVE YOU EVER HAD AN STD?NO HIV / HEP-C SCREENING HIV TEST OFFERED TO PATIENT:NO HEP-C TEST OFFERED TO PATIENT:NO WORSHIP NO CONFUCIANISM BELIEFS THAT WOULD IMPACT HEALTH CARE. LANGUAGE LANGUAGES SPOKEN:ITALIAN EDUCATION AA IN WORD PROCESSING. LEARNING BARRIERS / SPECIAL NEEDS CHANGE FROM LAST VISIT?NO BARRIERS TO LEARNING?NO HEARING IMPAIRED?NO VISION IMPAIRED?YES :CORRECTIVE LENSES COGNITIVELY IMPAIRED?NO READINESS TO LEARN?YES LEARNING PREFERENCES?NO LEARNING CAPABILITIES PRESENT?YES EMOTIONAL BARRIERS?NO SPECIAL DEVICES?YES :WALKER, WHEELCHAIR CERTIFIED ORTHOTIST NEEDED?NO DOMESTIC VIOLENCE DO YOU FEEL SAFE IN YOUR ENVIRONMENT?YES OCCUPATION: RETIRED. DIET: REGULAR DIET, BUT IS WORKING ON PORTION SIZE NOW, ESSENTIALLY ELIMINATED CHOCOLATE AND SODA. EXERCISE: NO REGULAR EXERCISE, LIMITED BY BACK AND KNEE PAIN. MARITAL STATUS: . OTHERS AT HOME: A CO-RENTER. - HAS THE PATIENT BEEN EDUCATED REGARDING HIS/HER PLAN OF CARE?YES HAS THE PATIENT BEEN EDUCATED REGARDING PAIN, THE RISK FOR PAIN, THE IMPORTANCE OF EFFECTIVE PAIN MANAGEMENT, AND THE PAIN ASSESSMENT PROCESS?YES HOUSING: RENTS APARTMENT. ADVANCE DIRECTIVE ADVANCE DIRECTIVE DISCUSSED WITH PATIENT:YES HE DOESN'T HAVE SOMEONE TO MAKE THESE DECISIONS FOR HIM. HE WILL CONTINUE THINKING ABOUT THIS. HE HAS SOMEONE IN MIND NOW THAT HE MAY TALK TO VITAL SIGNS WT 297.6 LBS, HT 73 IN, BMI 39.26 INDEX, BP 158/73 MM HG, HR 83 /MIN, RR 18 /MIN, TEMP 97.0 F, OXYGEN SAT % 96%, SAFE IN ENV? (Y/N) YES, REVIEWED BY: APA. DANIEL RN. EXAMINATION GENERAL EXAMINATION: A HISTORY AND PHYSICAL EXAM ON THE PATIENT WAS DONE ON 04/28/2020 (DATE OF ORIGINAL ASSESSMENT) IN PREPARATION OF SURGERY/PROCEDURE. I HAVE NOW REASSESSED THIS PATIENT'S HEALTH STATUS AND PERFORMED AN UPDATED EXAM TODAY. ALL CHANGES IN THE PATIENT'S HISTORY, PHYSICAL EXAM, PRE-EXISTING CONDITONS, AND INDICATIONS/CONTRAINDICATIONS TO THE PLANNED PROCEDURE AND ANESTHESIA ARE DOCUMENTED AND EVALUATED BELOW. I ATTEST TO THE ADEQUACY AND APPROPRIATENESS OF MY ASSESSMENT, AND CONFIRM THE NECESSITY FOR THE PLANNED PROCEDURE. THE PATIENT IS ALERT, ORIENTED TIMES THREE AND COOPERATIVE. LUNGS ARE CLEAR TO AUSCULTATION. HEART SHOWS REGULAR RHYTHM, NO MURMURS AND NO GALLOPS. 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 TOTAL VERSED GIVEN: 1 MG. MEDICATION: FENTANYL CITRATE 12.5MCG IVDILEONARDO,ISI 05/04/2020 02:12:33 PM - SECOND DOSE ORDERED, VERIFIED WITH AKASH CATHERINE 05/04/2020 2:38:08 PM > 1ST DOSE @ 1406, 2ND DOSE @ 1412. TOTAL FENTANYL GIVEN: 25 MCG. COMPLETION OF PROCEDURAL VISIT WHEN MEETS CRITERIAPETRAS,ERWIN R 05/04/2020 2:38:30 PM > CRTIERIA MET MEDICATION: FENTANYL CITRATE 25MCG IVPETRAS,ERWIN R 05/04/2020 12:35:18 PM > VERIFIED DILEONARDO,ISI 05/04/2020 02:12:53 PM - ORDER CANCELED MED: VERSED 1MG IV MIDAZOLAMPETRAS,ERWIN R 05/04/2020 12:35:36 PM > VERIFIED DILERACHEL,ISI 05/04/2020 02:13:03 PM - ORDER CANCELED OXYGEN AT 2 LITERS PER NASAL CANNULAPETRAS,ERWIN R 05/04/2020 2:17:00 PM > 02 ON AT 1335. 02 OFF AT 1416. IV LACTATED RINGER'S AT KVOPETRAS,ERWIN R 05/04/2020 2:21:50 PM > 200 ML LR INFUSED TOTAL AKASH DORADO 05/04/2020 2:34:21 PM > 22 GAUGE INSERTED IN RIGHT HAND AT 1320 BY Rafael VALDES RN. THREE FAILED ATTEMPTS PRIOR BY Jhony DORADO RN AND Rafael SANCHEZ RN. SITE CLEAR, FLUSHING WITHOUT DIFFICULTY. LR STARTED PER ORDER. PETRAS,ERWIN R 05/04/2020 2:50:24 PM > SALINE LOCK REMOVED, CATHETER TIP INTACT. BLEEDING CONTROLLED, DSD APPLIED. PROCEDURES PAIN NURSING RECORD PROCEDURE IN ROOM 1333, PHYSICIAN IN ROOM 1345, START 1352, FINISH 1412, PHYSICIAN OUT OF ROOM 1416, OUT OF ROOM 1424, ECG NORMAL SINUS, PATIENT SHIELDED YES, SAFETY STRAP YES, PREP BETADINE Rafael SNACHEZ RN, DRESSING TEGADERM DR. AGUERO LOC: PETRAS,ERWIN R 05/04/2020 1:52:28 PM > , 1. ALERT, ORIENTED RESP: PETRAS,ERWIN R 05/04/2020 1:52:30 PM > , 1. REGULAR, NO DYSPNEA COLOR: PETRAS,ERWIN R 05/04/2020 1:52:37 PM > , 1. PINK SKIN: PETRAS,ERWIN R 05/04/2020 1:52:40 PM > , 1. WARM, DRY POSITION: PETRAS,ERWIN R 05/04/2020 1:52:43 PM > , 1. PRONE VITALS: PETRAS,ERWIN R 05/04/2020 1:39:45 PM > 156/75, 67, 16, 99% PETRAS,ERWIN R 05/04/2020 1:40:19 PM > 144/71, 65, 16, 99% PETRAS,ERWIN R 05/04/2020 1:44:08 PM > 152/72, 64, 16, 99% PETRAS,ERWIN R 05/04/2020 1:49:02 PM > 154/73, 65, 16, 99% PETRAS,ERWIN R 05/04/2020 1:53:49 PM > 152/73, 63, 16, 99% PETRAS,ERWIN R 05/04/2020 1:58:09 PM > 145/70, 67, 20, 99% PETRAS,ERWIN R 05/04/2020 2:03:10 PM > 158/78, 67, 18, 100% PETRAS,ERWIN R 05/04/2020 2:08:21 PM > 177/77, 68, 16, 100% PETRAS,ERWIN R 05/04/2020 2:12:57 PM > 180/83, 69, 18, 100% PETRAS,ERWIN R 05/04/2020 2:14:44 PM > 163/93, 68, 16, 100% PETRAS,ERWIN R 05/04/2020 2:21:17 PM > 175/90, 69, 18, 99% PETRAS,ERWIN R 05/04/2020 2:34:56 PM > 126/60, 73, 18, 98% COMPLETION OF PROCEDURE APPOINTMENT: POST PAIN 0, DRESSING SITE DRY AND INTACT, IV DISCONTINUED, SITE CLEAR, CATHETER INTACT, GAIT WHEELCHAIR, TEACHING COMPLETED, PATIENT ACKNOWLEDGES UNDERSTANDING YES FRIEND PICKING UP PATIENT (TOMASA) INSTRUCTED TO CALL PATIENT LATER TODAY AND CHECK ON HIM DUE TO USE OF SEDATION IN PROCEDURE. TOMASA MORSEBALE WITH THIS PLAN, PROCEDURE APPOINTMENT COMPLETED AT 1455 BY: Rafael SANCHEZ RN PN CAUDAL EPIDURALS PRE PROCEDURE DIAGNOSIS LUMBAR POST LAMINECTOMY PAIN SYNDROME POST PROCEDURE DIAGNOSIS LUMBAR POST LAMINECTOMY PAIN SYNDROME PROCEDURE CAUDAL EPIDURAL STEROID INJECTION SURGEON DR. AILEEN AGUERO ATM TECHNICIAN NONE ANESTHESIA LOCAL PRE PROCEDURE NOTE THE PATIENT HAS HISTORY OF CHRONIC LOW BACK PAIN. I EVALUATED THE PATIENT AND REVIEWED THE CHART. I WENT OVER THE RISKS, ALTERNATIVES, AND BENEFITS ASSOCIATED WITH THIS PROCEDURE. THE PATIENT WOULD LIKE TO PROCEED AND GIVE CONSENT TO PERFORMED THE PROCEDURE. THE PATIENT WOULD LIKE TO MOVE FORWARD WITH IV SEDATION DUE TO ANXIETY AND DISCOMFORT ASSOCIATED WITH THE PROCEDURE. THE PATIENT DENIES UNEXPLAINABLE WEIGHT LOSS, FEVER, CHILLS, OR NEW CHANGES IN URINARY OR BOWEL CONTROL. THE PATIENT IS COVID-19 NEGATIVE DESCRIPTION OF PROCEDURE THE PATIENT WAS BROUGHT TO THE PROCEDURE ROOM AND PLACED IN THE PRONE POSITION. THE LUMBOSACRAL AREA WAS CLEANED WITH BETADINE SOLUTION AND DRAPED ASEPTICALLY. THE PROCEDURE WAS DONE UNDER STERILE CONDITIONS. A TIMEOUT WAS PERFORMED WHERE THE CONSENTED SITE WAS VERIFIED WITH EVERYONE IN THE ROOM. UNDER FLUOROSCOPIC GUIDANCE, THE TARGET POINT WAS SELECTED AT THE EPIDURAL SPACE BELOW THE SACROCOCCYGEAL LIGAMENT. I CONFIRMED AGAIN THE SITE OF TARGET. LIDOCAINE 0.5% WAS USE TO NUMB THE SKIN AND THE SUBCUTANEOUS TISSUE BELOW IT. SPINAL NEEDLE, 22-GAUGE 3.5 INCH, WAS ADVANCED UNDER FLUOROSCOPIC GUIDANCE AND FOLLOWING PATIENT FEEDBACK UNTIL THE EPIDURAL SPACE WAS REACHED BY THE LOSS OF RESISTANCE TECHNIQUE. ISOVUE M DYE 30%, 0.25 ML, WAS INJECTED SHOWING ADEQUATE SPREAD OF THE DYE. DEPO-MEDROL 40 MG WAS INJECTED SLOWLY FOLLOWING THE PATIENT FEEDBACK. THERE WAS NO EVIDENCE OF BLOOD, PARESTHESIA OR CEREBROSPINAL FLUID DURING THE PROCEDURE. I MOVE BACK THE NEEDLE TO THE SOFT TISSUE AN INJECTED BUPIVACAINE 0.125% 4 ML . THERE WAS NO EVIDENCE OF BLOOD, PARESTHESIA OR CEREBROSPINAL FLUID DURING THE PROCEDURE. THE PATIENT WAS SENT TO THE RECOVERY ROOM. THE PATIENT WAS MOVING THE EXTREMITIES AND DOING WELL. THERE WAS NO COMPLICATION DURING THE PROCEDURE. ESTIMATED BLOOD LOSS LESS THAN 5 ML. FLUOROSCOPY TIME WAS 30 SECONDS. PATIENT RECEIVED VERSED 1 MG AND FENTANYL 25 MCG IV IN DIVIDED DOSES. [id number] START TIME WAS 1347. [id number]-[id number] END TIME WAS 1417. TOTAL [id number] TIME WAS 20 MINUTES. POST PROCEDURE NOTE THERE WAS SOME CALCIFICATION IN THE SACRAL AREA. DEPENDING ON THE RESULTS, I WOULD CONSIDER A LEFT TRANSFORAMINAL EPIDURAL STEROID INJECTION AND NOT A CAUDAL. THE PATIENT WILL BE SEEN IN A FOLLOW UP IN THE NEXT FEW WEEKS. I AM LOOKING FOR LONG LASTING RELIEF FOR THE PATIENT WITH THIS INTERVENTION. INSTRUCTIONS WERE GIVEN, QUESTIONS WERE ANSWERED, AND THE PATIENT EXPRESSED UNDERSTANDING AND AGREES WITH THE PLAN. I, ISI WILD, DOCUMENTED THE ABOVE INFORMATION ACTING A SCRIBE FOR DR. AGUERO. I HAVE REVIEWED THE ABOVE DOCUMENT, WRITTEN BY ISI WILD, DYNAMITER, AND I VERIFY THAT IT IS ACCURATE PROCEDURE CODES 10051 LUMBAR/SACRAL W/ IMAGING 38823 MOD SED SAME PHYS/QHP 5/>YRS DISPOSITION & COMMUNICATION FOLLOW UP FOLLOW UP WITH BRICK MOLDER HAND (REASON: POST CAUDAL EPIDURAL STEROID INJECTION) ELECTRONICALLY SIGNED BY AILEEN AGUERO MD, MD ON 05/05/2020 AT 02:56 PM EDT DISCLAIMER : THIS IS A VISIT SUMMARY EXTRACTED FROM THE [employer] CHART. IT IS NOT A COPY OF THE [employer] PROGRESS NOTE. ARON
== END ==
LOC: M PAIN 12:30
PROVIDERS: ATTEND Anesthesiology
DX: M96.1 Postlaminectomy syndrome, not elsewhere classified (principal); M51.16 Intervertebral disc disorders with radiculopathy, lumbar region; G47.33 Obstructive sleep apnea (adult) (pediatric); R73.01 Impaired fasting glucose; E78.5 Hyperlipidemia, unspecified; K21.9 Gastro-esophageal reflux disease without esophagitis; D64.9 Anemia, unspecified; J30.9 Allergic rhinitis, unspecified; E66.9 Obesity, unspecified; Z68.39 Body mass index [BMI] 39.0-39.9, adult; Z79.82 Long term (current) use of aspirin; Z79.899 Other long term (current) drug therapy
CPT/HCPCS: 62323; 99152; J1030; J2250; J3010; Q9967

== ENCOUNTER → 2020-05-18 | Outpatient (CLI) | payer MEDICARE, MEDICAID ==
[~2020-05-18] MED LIST changes: -BUPIVACAINE HCL 0.25% 10ML VIAL As Ordered ONE; -ISOVUE-M 300 61% 15ML VIAL As Ordered ONE; -LIDOCAINE 1% SDV 30ML VIAL As Ordered ONE; -MIDAZOLAM INJ 2MG/2ML VIAL (J2250 PER 1MG) As Ordered ONE; -fentaNYL 100 MCG/2 ML INJECTION (J3010) As Ordered ONE; -methylPREDNISolone SUSP 40MG/ML 1ML VIAL (DEPO MEDROL) As Ordered ONE
--- NOTE | 2020-05-21 11:05 | ECWPNPC ---
PATIENT NAME: CRAIG RAHMAN : 1945 GENDER: MALE VISIT DATE: 05/18/2020 DISCHARGE DATE: 05/18/20 1419 VISIT LOCKED DATE TIME: PHYSICIAN: KAYLEEN PACE RESOURCE: KAYLEEN PACE REASON FOR APPOINTMENT 1. POST CAUDAL EPIDURAL STEROID INJECTION WITH IV SEDATION HISTORY OF PRESENT ILLNESS GENERAL: HERE FOR POST PROCEDURE FOLLOW-UP. HAD CAUDAL EPIDURAL STEROID INJECTION AT HIS LAST VISIT. REPORTING MARKED REDUCTION IN PAIN AND RESOLUTION OF LEFT LEG RADICULAR SYMPTOMS SINCE PROCEDURE. HE DID HAVE ONE EPISODE AFTER ROUGHHOUSING WITH HIS GRANDSON WHERE HIS LEFT LEG BEGAN TO BOTHER HIM AGAIN BUT THAT SINCE HAS RESOLVED. HAS APPOINTMENT TO TALK WITH NEUROSURGEON IN JUNE.-. FALL RISK SCREENING: SCREENING : ONE FALL REPORTED IN THE LAST YEAR WITHOUT INJURY. PAIN SCREENING: PATIENT HAS A COMPLAINT OF ACUTE OR CHRONIC PAIN :YES LOCATION OF PAIN:LEG(S) BILAT KNEES INTENSITY OF PAIN (SCALE OF 1 TO 10):5 WHAT DOES YOUR PAIN FEEL LIKE:THROBBING DURATION:CONTINOUS, CONSTANT PAIN IS INCREASED BY:ACTIVITIES PAIN IS DECREASED BY:SITTING NURSING NOTE: -. PAIN CENTER INTAKE QUESTIONS: DO YOU HAVE A HISTORY OF MRSA? :NO DO YOU TAKE A BLOOD THINNERS? :NO DO YOU HAVE ANY BLEEDING DISORDERS? :NO ANY NEW NUMBNESS OR WEAKNESS IN YOUR LEGS OR ARMS? :NO ANY PACEMAKER,DEFIBRILLATOR, OR DORSAL COLUMN STIMULATOR? :NO DO YOU HAVE ANY RASHES OR OPEN SORES? :NO ARE YOU ALLERGIC TO IV DYE? :NO ARE YOU DIABETIC? :NO ANY NEW PROBLEMS WITH YOUR MEDICATIONS? :NO HAVE YOU RECEIVED A VACCINE IN THE PAST 30 DAYS? :NO DO YOU PLAN TO RECEIVE A VACCINE IN THE NEXT 21 DAYS? :NO DO YOU NEED ANY PRESCRIPTION? :NO DO YOU TAKE ANY IMMUNOSUPPRESSIVE MEDICATIONS? :NO DO YOU HAVE ANY KIDNEY OR LIVER DISEASE? :NO IS THERE A CHANCE YOU COULD BE ? :NO ARE YOU BREAST FEEDING? :NO CURRENT MEDICATIONS TAKING ONE DAILY - TABLET 1 TABLET ORALLY ONCE A DAY TAKING ASPIRIN 81 MG TABLET 1 TABLET ORALLY ONCE A DAY, NOTES: 05/03/20 0700 TAKING LIDOCAINE 5 % OINTMENT APPLY 2-3 GRAMS TOPICALLY TO AFFECTED AREA 3-4 TIMES PER DAY. TAKING FISH OIL 1000 MG CAPSULE 1 CAPSULE ORALLY TWICE DAILY TAKING WALKER - MISCELLANEOUS WITH SEAT EXTERNALLY DAILY DX: M48.062 TAKING ROLLING WALKER 1 1 WITH SEAT HEAVY DUTY DAILY DX: M48.062, NOTES: MEDICAID #: [id number] WEIGHT: 282.8 LBS TAKING ADVIL 200 MG TABLET 2 TABLETS WITH FOOD OR MILK NEEDED ORALLY TWICE A DAY, NOTES: 0300 TAKING MAY HAVE - - BATH CHAIR "BIG DIFFERENCE" DAILY. DX: M48.062 AND W18.2X TAKING SHOWER CHAIR WITHOUT WHEELS HEAVY DUTY CHAIR DAILY USE, NOTES: WEIGHT: 290.8 LBS DX: M48.062 AND W18.2X MEDICAID #: [id number] TAKING SLEEP AID 25 MG TABLET 1 TABLET AT BEDTIME NEEDED ORALLY ONCE A DAY TAKING LIPITOR 40 MG TABLET 1 TABLET ORALLY ONCE A DAY TAKING INDAPAMIDE 1.25 MG TABLET 1 TABLET IN THE MORNING ORALLY ONCE A DAY, NOTES: 05/03/20 0700 TAKING ALLOPURINOL 100 MG TABLETS 2 TABS IN THE AM, 1 TAB IN THE PM ORALLY BID, NOTES: 04/30 TAKING OMEPRAZOLE 40 MG CAPSULE DELAYED RELEASE TAKE ONE CAPSULE BY MOUTH EVERY DAY TAKING SENOKOT S 8.6-50 MG TABLET 1 TABLET IN THE EVENING ORALLY ONCE A DAY, HOLD FOR LOOSE STOOL, NOTES: TAKES NEEDED TAKING BARD MALE EXTERNAL CATHETER - MISCELLANEOUS DIRECTED NEEDED FOR TRAVEL BID PRN DX: N40.1, M48.062, NOTES: I HAVENT GO IT YET TAKING DUTASTERIDE 0.5 MG CAPSULE TAKE ONE CAPSULE BY MOUTH ONCE DAILY TAKING ZYRTEC-D ALLERGY & CONGESTION 5-120 MG TABLET EXTENDED RELEASE 12 HOUR 1 TABLET NEEDED ORALLY BID TAKING ZYRTEC ALLERGY 10 MG TABLET 1 TABLET ORALLY ONCE A DAY NOT-TAKING SHOWER CHAIR WITHOUT WHEELS DIRECTED BARIATRIC DAILY USE DX M48.062, NOTES: MEDICAID #: [id number] WEIGHT: 282.8 LBS NOT-TAKING BARD [id number] LEG BAG - MISCELLANEOUS DIRECTED TO USE WITH EXTERNAL CATHETER DAILY PRN DX: N40.1, M48.062 NOT-TAKING SHOWER CHAIR WITHOUT WHEELS DIRECTED DX: M43.17, M48.06 DAILY USE NOT-TAKING METAMUCIL FIBER 51.7 % PACKET DIRECTED ORALLY NOT-TAKING PRILOSEC 40 MG CAPSULE DELAYED RELEASE 1 CAPSULE ORALLY DAILY NOT-TAKING CYCLOBENZAPRINE HCL 10 MG TABLET 1 TABLET NEEDED ORALLY THREE TIMES A DAY MEDICATION LIST REVIEWED AND RECONCILED WITH THE PATIENT PAST MEDICAL HISTORY RAFIQ/CPAP (PULMONARY) IMPAIRED FASTING GLUCOSE SPINAL STENOSIS SYNDROME HYPERLIPIDEMIA, ASCVD 10-YEAR RISK IS 15.8% IN 05/2017 - ON ATORVASTATIN 40MG GERD, ATTEMPTED TO WEAN BACK TO ZANTAC IN 2019, BUT IT DIDN'T WORK ANEMIA ALLERGIC RHINITIS ONOCHOMYCOSIS BILATERAL ANKLE PAIN-SOS- JAGDEEP- ORTHOTICS 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 SOCIAL HISTORY GENERAL: TOBACCO USE ARE YOU A:: FORMER SMOKER , HOW LONG HAS IT BEEN SINCE YOU LAST SMOKED?: > 10 YEARS. LATEX QUESTIONNAIRE LATEX ALLERGY : HAVE YOU EVER DEVELOPED ANY TYPE OF REACTION AFTER HANDLING LATEX PRODUCTS SUCH RUBBER GLOVES, CONDOMS, DIAPHRAGMS, BALLOONS, SOCKS, OR UNDERWEAR?NO LATEX ALLERGY : HAVE YOU EVER DEVELOPED ANY TYPE OF REACTION DURING OR AFTER DENTAL APPOINTMENT, VAGINAL/RECTAL EXAMINATION, SURGICAL PROCEDURE, OR ANY OTHER EXPOSURE?NO DATE ASKED : 05/03/2020 LATEX RISK : HAVE YOU EVER HAD ANY DIFFICULTY BREATHING OR HIVES AFTER EATING OR HANDLING ANY FRUITS, OR VEGETABLES; SUCH KIWI, BANANAS, STONE FRUITS, OR CHESTNUTSNO LATEX RISK : DO YOU HAVE A PREVIOUS PERSONAL HISTORY OF MORE THAN NINE SURGERIES, SPINA BIFIDA, OR REPEATED CATHERIZATIONS? NO LATEX RISK : ARE YOU FREQUENTLY EXPOSED TO LATEX PRODUCTS IN YOUR OCCUPATION?NO ALCOHOL USE: NO. BMI CARE GOAL FOLLOW-UP ABOVE NORMAL BMI FOLLOW-UPLIFESTYLE EDUCATION REGARDING DIET ALCOHOL SCREENING DID YOU HAVE A DRINK CONTAINING ALCOHOL IN THE PAST YEAR?NO POINTS0 INTERPRETATIONNEGATIVE RECREATIONAL DRUG USE DENIES. CAFFEINE < 1 PER WEEK. SEXUAL HX HAD SEX IN THE LAST 12 MONTHS (VAGINAL, ORAL, OR ANAL)?NO HAVE YOU EVER HAD AN STD?NO HIV / HEP-C SCREENING HIV TEST OFFERED TO PATIENT:NO HEP-C TEST OFFERED TO PATIENT:NO YARSANI NO BUDDHISM BELIEFS THAT WOULD IMPACT HEALTH CARE. LANGUAGE LANGUAGES SPOKEN:DANISH EDUCATION AA IN WORD PROCESSING. 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 DIET: REGULAR DIET, BUT IS WORKING ON PORTION SIZE NOW, ESSENTIALLY ELIMINATED CHOCOLATE AND SODA. EXERCISE: NO REGULAR EXERCISE, LIMITED BY BACK AND KNEE PAIN. MARITAL STATUS: . OTHERS AT HOME: A CO-RENTER. - HAS THE PATIENT BEEN EDUCATED REGARDING HIS/HER PLAN OF CARE?YES HAS THE PATIENT BEEN EDUCATED REGARDING PAIN, THE RISK FOR PAIN, THE IMPORTANCE OF EFFECTIVE PAIN MANAGEMENT, AND THE PAIN ASSESSMENT PROCESS?YES HOUSING: RENTS APARTMENT. ADVANCE DIRECTIVE ADVANCE DIRECTIVE DISCUSSED WITH PATIENT:YES HE DOESN'T HAVE SOMEONE TO MAKE THESE DECISIONS FOR HIM. HE WILL CONTINUE THINKING ABOUT THIS. HE HAS SOMEONE IN MIND NOW THAT HE MAY TALK TO REVIEW OF SYSTEMS CONSTITUTIONAL: ANY RECENT FEVER NO . CHILLS NO . WEIGHT CHANGE OF UNKNOWN REASONS NO . GASTROENTEROLOGY: NEW UNEXPLAINABLE CHANGES IN BOWEL CONTROL NO . CONSTIPATION NO . GENITOURINARY: ANY NEW CHANGE IN BLADDER CONTROL? NO . NEUROLOGY: NEW ONSET DIZZINESS OR NEUROLOGICAL CHANGES NOT MENTIONED NO . NEW NUMBNESS OR PAIN PATTERNS NOT MENTIONED AND PERTINENT TO TODAY'S VISIT NO . CARDIOLOGY: NEW CHEST PRESSURE NO . PATIENT DENIES NO . RESPIRATORY: UNEXPLAINABLE COUGH NO . NEW SHORTNESS OF BREATH NO . VITAL SIGNS WT 287.0 LBS, HT 73 IN, BMI 37.86 INDEX, BP 144/71 MM HG, HR 76 /MIN, RR 18 /MIN, TEMP 96.6 F, OXYGEN SAT % 96%, SAFE IN ENV? (Y/N) Y, NA INITIALS AW 1343, REVIEWED BY: AFUA. EXAMINATION GENERAL EXAMINATION: GENERALAWAKE,ALERT ,PLEASANT . PSYCHAFFECT NORMAL . LUNGS:LUNG HENDRICKSON ARE CLEAR TO AUSCULTATION BILATERALLY. GOOD MOVEMENT OF AIR . HEART:S1, S2 IN A REGULAR RATE AND RHYTHM. NO SIGNIFICANT MURMURS, RUBS OR GALLOPS NOTED . ASSESSMENTS OTHER CHRONIC PAIN - G89.29 (PRIMARY) SPINAL STENOSIS, LUMBAR REGION WITH NEUROGENIC CLAUDICATION - M48.062 DEGENERATIVE LUMBAR SPINAL STENOSIS - M48.061 TREATMENT OTHER CHRONIC PAIN PAIN PROCEDURE LOGDATE OF PROCEDURE05/04/20PROCEDURE:CAUDAL EPIDURALAMOUNT OF PRE SEDATEFENTANYL 25MCG, VERSED 1MGRESULT:MARKED REDUCTION IN LOW BACK PAIN AND LEFT LEG RADICULAR SYMPTOMS POST PROCEDURE PROCEDURE CODES FA211 ESTABILISHED PATIENT [facility] CHARGE DISPOSITION & COMMUNICATION FOLLOW UP PT WILL CALL FOR F/U (REASON: LBP W LEFT LEG RADICULAR/RESPONDS WELL TO CAUDAL) ELECTRONICALLY SIGNED BY HEBERT MATIAS ON 05/20/2020 AT 03:56 PM EDT DISCLAIMER : THIS IS A VISIT SUMMARY EXTRACTED FROM THE [employer] CHART. IT IS NOT A COPY OF THE [employer] PROGRESS NOTE. ARON
--- NOTE | 2020-05-21 11:06 | ECWPNPC ---
PATIENT NAME: CRAIG RAHMAN : 1945 GENDER: MALE VISIT DATE: 05/18/2020 DISCHARGE DATE: 05/18/20 1419 VISIT LOCKED DATE TIME: PHYSICIAN: KAYLEEN PACE RESOURCE: KAYLEEN PACE REASON FOR APPOINTMENT 1. POST CAUDAL EPIDURAL STEROID INJECTION WITH IV SEDATION HISTORY OF PRESENT ILLNESS GENERAL: HERE FOR POST PROCEDURE FOLLOW-UP. HAD CAUDAL EPIDURAL STEROID INJECTION AT HIS LAST VISIT. REPORTING MARKED REDUCTION IN PAIN AND RESOLUTION OF LEFT LEG RADICULAR SYMPTOMS SINCE PROCEDURE. HE DID HAVE ONE EPISODE AFTER ROUGHHOUSING WITH HIS GRANDSON WHERE HIS LEFT LEG BEGAN TO BOTHER HIM AGAIN BUT THAT SINCE HAS RESOLVED. HAS APPOINTMENT TO TALK WITH NEUROSURGEON IN JUNE.-. FALL RISK SCREENING: SCREENING : ONE FALL REPORTED IN THE LAST YEAR WITHOUT INJURY. PAIN SCREENING: PATIENT HAS A COMPLAINT OF ACUTE OR CHRONIC PAIN :YES LOCATION OF PAIN:LEG(S) BILAT KNEES INTENSITY OF PAIN (SCALE OF 1 TO 10):5 WHAT DOES YOUR PAIN FEEL LIKE:THROBBING DURATION:CONTINOUS, CONSTANT PAIN IS INCREASED BY:ACTIVITIES PAIN IS DECREASED BY:SITTING NURSING NOTE: -. PAIN CENTER INTAKE QUESTIONS: DO YOU HAVE A HISTORY OF MRSA? :NO DO YOU TAKE A BLOOD THINNERS? :NO DO YOU HAVE ANY BLEEDING DISORDERS? :NO ANY NEW NUMBNESS OR WEAKNESS IN YOUR LEGS OR ARMS? :NO ANY PACEMAKER,DEFIBRILLATOR, OR DORSAL COLUMN STIMULATOR? :NO DO YOU HAVE ANY RASHES OR OPEN SORES? :NO ARE YOU ALLERGIC TO IV DYE? :NO ARE YOU DIABETIC? :NO ANY NEW PROBLEMS WITH YOUR MEDICATIONS? :NO HAVE YOU RECEIVED A VACCINE IN THE PAST 30 DAYS? :NO DO YOU PLAN TO RECEIVE A VACCINE IN THE NEXT 21 DAYS? :NO DO YOU NEED ANY PRESCRIPTION? :NO DO YOU TAKE ANY IMMUNOSUPPRESSIVE MEDICATIONS? :NO DO YOU HAVE ANY KIDNEY OR LIVER DISEASE? :NO IS THERE A CHANCE YOU COULD BE ? :NO ARE YOU BREAST FEEDING? :NO CURRENT MEDICATIONS TAKING ONE DAILY - TABLET 1 TABLET ORALLY ONCE A DAY TAKING ASPIRIN 81 MG TABLET 1 TABLET ORALLY ONCE A DAY, NOTES: 05/03/20 0700 TAKING LIDOCAINE 5 % OINTMENT APPLY 2-3 GRAMS TOPICALLY TO AFFECTED AREA 3-4 TIMES PER DAY. TAKING FISH OIL 1000 MG CAPSULE 1 CAPSULE ORALLY TWICE DAILY TAKING WALKER - MISCELLANEOUS WITH SEAT EXTERNALLY DAILY DX: M48.062 TAKING ROLLING WALKER 1 1 WITH SEAT HEAVY DUTY DAILY DX: M48.062, NOTES: MEDICAID #: [id number] WEIGHT: 282.8 LBS TAKING ADVIL 200 MG TABLET 2 TABLETS WITH FOOD OR MILK NEEDED ORALLY TWICE A DAY, NOTES: 0300 TAKING MAY HAVE - - BATH CHAIR "BIG DIFFERENCE" DAILY. DX: M48.062 AND W18.2X TAKING SHOWER CHAIR WITHOUT WHEELS HEAVY DUTY CHAIR DAILY USE, NOTES: WEIGHT: 290.8 LBS DX: M48.062 AND W18.2X MEDICAID #: [id number] TAKING SLEEP AID 25 MG TABLET 1 TABLET AT BEDTIME NEEDED ORALLY ONCE A DAY TAKING LIPITOR 40 MG TABLET 1 TABLET ORALLY ONCE A DAY TAKING INDAPAMIDE 1.25 MG TABLET 1 TABLET IN THE MORNING ORALLY ONCE A DAY, NOTES: 05/03/20 0700 TAKING ALLOPURINOL 100 MG TABLETS 2 TABS IN THE AM, 1 TAB IN THE PM ORALLY BID, NOTES: 04/30 TAKING OMEPRAZOLE 40 MG CAPSULE DELAYED RELEASE TAKE ONE CAPSULE BY MOUTH EVERY DAY TAKING SENOKOT S 8.6-50 MG TABLET 1 TABLET IN THE EVENING ORALLY ONCE A DAY, HOLD FOR LOOSE STOOL, NOTES: TAKES NEEDED TAKING BARD MALE EXTERNAL CATHETER - MISCELLANEOUS DIRECTED NEEDED FOR TRAVEL BID PRN DX: N40.1, M48.062, NOTES: I HAVENT GO IT YET TAKING DUTASTERIDE 0.5 MG CAPSULE TAKE ONE CAPSULE BY MOUTH ONCE DAILY TAKING ZYRTEC-D ALLERGY & CONGESTION 5-120 MG TABLET EXTENDED RELEASE 12 HOUR 1 TABLET NEEDED ORALLY BID TAKING ZYRTEC ALLERGY 10 MG TABLET 1 TABLET ORALLY ONCE A DAY NOT-TAKING SHOWER CHAIR WITHOUT WHEELS DIRECTED BARIATRIC DAILY USE DX M48.062, NOTES: MEDICAID #: [id number] WEIGHT: 282.8 LBS NOT-TAKING BARD [id number] LEG BAG - MISCELLANEOUS DIRECTED TO USE WITH EXTERNAL CATHETER DAILY PRN DX: N40.1, M48.062 NOT-TAKING SHOWER CHAIR WITHOUT WHEELS DIRECTED DX: M43.17, M48.06 DAILY USE NOT-TAKING METAMUCIL FIBER 51.7 % PACKET DIRECTED ORALLY NOT-TAKING PRILOSEC 40 MG CAPSULE DELAYED RELEASE 1 CAPSULE ORALLY DAILY NOT-TAKING CYCLOBENZAPRINE HCL 10 MG TABLET 1 TABLET NEEDED ORALLY THREE TIMES A DAY MEDICATION LIST REVIEWED AND RECONCILED WITH THE PATIENT PAST MEDICAL HISTORY RAFIQ/CPAP (PULMONARY) IMPAIRED FASTING GLUCOSE SPINAL STENOSIS SYNDROME HYPERLIPIDEMIA, ASCVD 10-YEAR RISK IS 15.8% IN 05/2017 - ON ATORVASTATIN 40MG GERD, ATTEMPTED TO WEAN BACK TO ZANTAC IN 2019, BUT IT DIDN'T WORK ANEMIA ALLERGIC RHINITIS ONOCHOMYCOSIS BILATERAL ANKLE PAIN-SOS- JAGDEEP- ORTHOTICS 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 SOCIAL HISTORY GENERAL: TOBACCO USE ARE YOU A:: FORMER SMOKER , HOW LONG HAS IT BEEN SINCE YOU LAST SMOKED?: > 10 YEARS. LATEX QUESTIONNAIRE LATEX ALLERGY : HAVE YOU EVER DEVELOPED ANY TYPE OF REACTION AFTER HANDLING LATEX PRODUCTS SUCH RUBBER GLOVES, CONDOMS, DIAPHRAGMS, BALLOONS, SOCKS, OR UNDERWEAR?NO LATEX ALLERGY : HAVE YOU EVER DEVELOPED ANY TYPE OF REACTION DURING OR AFTER DENTAL APPOINTMENT, VAGINAL/RECTAL EXAMINATION, SURGICAL PROCEDURE, OR ANY OTHER EXPOSURE?NO DATE ASKED : 05/03/2020 LATEX RISK : HAVE YOU EVER HAD ANY DIFFICULTY BREATHING OR HIVES AFTER EATING OR HANDLING ANY FRUITS, OR VEGETABLES; SUCH KIWI, BANANAS, STONE FRUITS, OR CHESTNUTSNO LATEX RISK : DO YOU HAVE A PREVIOUS PERSONAL HISTORY OF MORE THAN NINE SURGERIES, SPINA BIFIDA, OR REPEATED CATHERIZATIONS? NO LATEX RISK : ARE YOU FREQUENTLY EXPOSED TO LATEX PRODUCTS IN YOUR OCCUPATION?NO ALCOHOL USE: NO. BMI CARE GOAL FOLLOW-UP ABOVE NORMAL BMI FOLLOW-UPLIFESTYLE EDUCATION REGARDING DIET ALCOHOL SCREENING DID YOU HAVE A DRINK CONTAINING ALCOHOL IN THE PAST YEAR?NO POINTS0 INTERPRETATIONNEGATIVE RECREATIONAL DRUG USE DENIES. CAFFEINE < 1 PER WEEK. SEXUAL HX HAD SEX IN THE LAST 12 MONTHS (VAGINAL, ORAL, OR ANAL)?NO HAVE YOU EVER HAD AN STD?NO HIV / HEP-C SCREENING HIV TEST OFFERED TO PATIENT:NO HEP-C TEST OFFERED TO PATIENT:NO CONFUCIANIST NO PENTECOSTALISM BELIEFS THAT WOULD IMPACT HEALTH CARE. LANGUAGE LANGUAGES SPOKEN:TURKMEN EDUCATION AA IN WORD PROCESSING. LEARNING BARRIERS / SPECIAL NEEDS CHANGE FROM LAST VISIT?NO BARRIERS TO LEARNING?NO HEARING IMPAIRED?NO VISION IMPAIRED?YES COGNITIVELY IMPAIRED?NO :CORRECTIVE LENSES READINESS TO LEARN?YES LEARNING PREFERENCES?NO LEARNING CAPABILITIES PRESENT?YES EMOTIONAL BARRIERS?NO SPECIAL DEVICES?YES :WALKER, WHEELCHAIR MEDICAL DOSIMETRIST NEEDED?NO DOMESTIC VIOLENCE DO YOU FEEL SAFE IN YOUR ENVIRONMENT?YES OCCUPATION: RETIRED. DIET: REGULAR DIET, BUT IS WORKING ON PORTION SIZE NOW, ESSENTIALLY ELIMINATED CHOCOLATE AND SODA. EXERCISE: NO REGULAR EXERCISE, LIMITED BY BACK AND KNEE PAIN. MARITAL STATUS: . OTHERS AT HOME: A CO-RENTER. - HAS THE PATIENT BEEN EDUCATED REGARDING HIS/HER PLAN OF CARE?YES HAS THE PATIENT BEEN EDUCATED REGARDING PAIN, THE RISK FOR PAIN, THE IMPORTANCE OF EFFECTIVE PAIN MANAGEMENT, AND THE PAIN ASSESSMENT PROCESS?YES HOUSING: RENTS APARTMENT. ADVANCE DIRECTIVE ADVANCE DIRECTIVE DISCUSSED WITH PATIENT:YES HE DOESN'T HAVE SOMEONE TO MAKE THESE DECISIONS FOR HIM. HE WILL CONTINUE THINKING ABOUT THIS. HE HAS SOMEONE IN MIND NOW THAT HE MAY TALK TO REVIEW OF SYSTEMS CONSTITUTIONAL: ANY RECENT FEVER NO . CHILLS NO . WEIGHT CHANGE OF UNKNOWN REASONS NO . GASTROENTEROLOGY: NEW UNEXPLAINABLE CHANGES IN BOWEL CONTROL NO . CONSTIPATION NO . GENITOURINARY: ANY NEW CHANGE IN BLADDER CONTROL? NO . NEUROLOGY: NEW ONSET DIZZINESS OR NEUROLOGICAL CHANGES NOT MENTIONED NO . NEW NUMBNESS OR PAIN PATTERNS NOT MENTIONED AND PERTINENT TO TODAY'S VISIT NO . CARDIOLOGY: NEW CHEST PRESSURE NO . PATIENT DENIES NO . RESPIRATORY: UNEXPLAINABLE COUGH NO . NEW SHORTNESS OF BREATH NO . VITAL SIGNS WT 287.0 LBS, HT 73 IN, BMI 37.86 INDEX, BP 144/71 MM HG, HR 76 /MIN, RR 18 /MIN, TEMP 96.6 F, OXYGEN SAT % 96%, SAFE IN ENV? (Y/N) Y, NA INITIALS AW 1343, REVIEWED BY: AFUA. EXAMINATION GENERAL EXAMINATION: GENERALAWAKE,ALERT ,PLEASANT . PSYCHAFFECT NORMAL . LUNGS:LUNG HENDRICKSON ARE CLEAR TO AUSCULTATION BILATERALLY. GOOD MOVEMENT OF AIR . HEART:S1, S2 IN A REGULAR RATE AND RHYTHM. NO SIGNIFICANT MURMURS, RUBS OR GALLOPS NOTED . ASSESSMENTS OTHER CHRONIC PAIN - G89.29 (PRIMARY) SPINAL STENOSIS, LUMBAR REGION WITH NEUROGENIC CLAUDICATION - M48.062 DEGENERATIVE LUMBAR SPINAL STENOSIS - M48.061 TREATMENT OTHER CHRONIC PAIN PAIN PROCEDURE LOGDATE OF PROCEDURE05/04/20PROCEDURE:CAUDAL EPIDURALAMOUNT OF PRE SEDATEFENTANYL 25MCG, VERSED 1MGRESULT:MARKED REDUCTION IN LOW BACK PAIN AND LEFT LEG RADICULAR SYMPTOMS POST PROCEDURE PROCEDURE CODES FA211 ESTABILISHED PATIENT [facility] CHARGE DISPOSITION & COMMUNICATION FOLLOW UP PT WILL CALL FOR F/U (REASON: LBP W LEFT LEG RADICULAR/RESPONDS WELL TO CAUDAL) ELECTRONICALLY SIGNED BY HEBERT MATIAS ON 05/20/2020 AT 03:56 PM EDT DISCLAIMER : THIS IS A VISIT SUMMARY EXTRACTED FROM THE [employer] CHART. IT IS NOT A COPY OF THE [employer] PROGRESS NOTE. ARON
== END ==
LOC: M PAIN 13:30
PROVIDERS: ATTEND Nurse Practitioner Family
DX: G89.29 Other chronic pain (principal); M48.062 Spinal stenosis, lumbar region with neurogenic claudication; M48.061 Spinal stenosis, lumbar region without neurogenic claudication; G47.33 Obstructive sleep apnea (adult) (pediatric); R73.01 Impaired fasting glucose; E78.5 Hyperlipidemia, unspecified; K21.9 Gastro-esophageal reflux disease without esophagitis; D64.9 Anemia, unspecified; J30.9 Allergic rhinitis, unspecified; E66.9 Obesity, unspecified; Z87.891 Personal history of nicotine dependence; Z68.37 Body mass index [BMI] 37.0-37.9, adult; Z79.82 Long term (current) use of aspirin; Z79.899 Other long term (current) drug therapy

== ENCOUNTER → 2020-07-09 | Outpatient (CLI) | payer MEDICARE, MEDICAID ==
--- NOTE | 2020-07-09 09:38 | REP ---
INDICATION: LUMBAR STENOSIS W/ NUEROGENIC CLAUDICATION. COMPARISON: Comparison chest x-ray December 12, 2013. TECHNIQUE: Two views.. FINDINGS: The lungs are well inflated and free of infiltrate. The pleural angles are sharp. The heart size is normal. Pulmonary vasculature is not increased. No significant bony abnormality is seen. There are degenerative changes in the thoracic spine and aorta. IMPRESSION: No active disease.. <Electronically signed by Sky Toscano > 07/09/20 0957
--- NOTE | 2020-07-09 09:42 | REP ---
INDICATION: LUMBAR STENOSIS W/ NUEROGENIC CLAUDICATION. COMPARISON: None. TECHNIQUE: Two upright AP views of the thoracolumbar spine. FINDINGS: There is diffuse degenerative disc disease in the lumbar and to a lesser extent thoracic spine. No developmental anomaly is appreciated. There is a dextroconvex curve in the lumbar spine measuring 13 degrees from T11-L3. There is a rotational component visible. No other curvature is appreciated. No fracture or collapse is seen. Pedicles and posterior elements appear intact. The radiographs are somewhat overexposed. IMPRESSION: 13 degree dextroconvex thoracolumbar curve as above. Degenerative spondylosis change. <Electronically signed by Sky Toscano > 07/09/20 8008
--- NOTE | 2020-07-09 09:45 | REP ---
INDICATION: LUMBAR STENOSIS. COMPARISON: None. TECHNIQUE: Three views of the lumbar spine are provided. FINDINGS: Lumbar vertebral body heights are preserved. Alignment is normal on lateral radiographs. There is advanced diffuse degenerative spondylosis change with disc space narrowing, vacuum phenomena, and exuberant anterior osteophyte formation at multiple levels most pronounced at L3-4, L2-3 in the lumbar spine and T11-12 in the lower thoracic spine. The spinous processes are fairly large in craniocaudal span and there are sclerotic changes at the abutment between the L3-4 spinous processes. Paravertebral spurring is seen. There is a dextroconvex thoracolumbar curvature. Sacrum and SI joints appear intact. No bony destructive lesion is seen. Psoas margins are symmetric. IMPRESSION: Advanced degenerative spondylosis changes. Dextroconvex curvature in the upper lumbar spine. Fairly exuberant osteophyte formation. Question spinous process abutment. <Electronically signed by Sky Toscano > 07/09/20 0934
--- NOTE | 2020-07-09 09:48 | REP ---
INDICATION: LUMBAR STENOSIS. COMPARISON: None. TECHNIQUE: Three views of the thoracic spine are provided. FINDINGS: Thoracic vertebral body heights are preserved. Alignment is normal on lateral radiograph. Pedicles and posterior elements are intact. Discogenic spurring is seen along the right lateral and to a lesser extent left lateral margin. There is calcification of the anterior longitudinal ligament consistent with diffuse idiopathic skeletal hyperostosis, DISH. No paravertebral soft tissue mass is seen. No bony destructive lesion is appreciated. Swimmer's lateral view shows fusion across what appears to be 3 lower cervical vertebral discs. IMPRESSION: Extensive degenerative changes. Lower cervical disc fusion. <Electronically signed by Sky Toscano > 07/09/20 2748
--- NOTE | 2020-07-09 10:03 | REP ---
INDICATION: LUMBAR STENOSIS W/ NUEROGENIC CLAUDICATION *CT 1ST*. COMPARISON: Comparison MRI study lumbar spine 15 March 2020.. TECHNIQUE: Helical scanning is acquired and 4 mm axial images re-formatted. Coronal and sagittal MPR images are provided. FINDINGS: Lumbar vertebral body heights are preserved. Is there is a dextroconvex curvature in the lumbar spine. There is advanced diffuse degenerative spondylosis change. Extensive hypertrophic facet arthropathy is seen bilaterally at each lumbar level as well. On sagittal images the spinous processes abut 1 another at each level from T12-L1 to L3-4. Canal size is developmentally and diffusely small in the lumbar spine. There is multifocal large anterior and anterolateral paravertebral osteophyte formation throughout the lumbar spine. Normal caliber aorta. No extra vertebral abnormality is appreciated. There is a small cyst in the upper pole the right kidney. At T12-L1, there is anterior and right lateral bridging osteophyte formation. Mild diffuse bulging of the posterior disc margin is seen. Central canal size is borderline. At L1-L2, there is degenerative disc narrowing with a small vacuum phenomenon. Anterior osteophyte formation is noted. There is diffuse bulging of the posterior margin of the disc space and there is moderate central canal stenosis at L1-2 due to diffuse disc bulging, developmentally short pedicles, and mild ligamentum flavum and facet hypertrophy. Thecal sac has a triangular configuration. Midline AP dimension is 7.9 mm. No bony foraminal encroachment is seen. At L2-L3, there is degenerative narrowing of the disc space with vacuum phenomenon and reactive sclerosis. Large abutting osteophytes are seen anteriorly on the left and bilaterally. There is diffuse bulging of the posterior disc margin with osteophytic ridging. There is severe central canal stenosis at L2-3 due to this in combination with developmentally short pedicles and facet and ligamentum flavum hypertrophy. There is ligamentum flavum calcification as well. The spinal canal is quite compromised circumferentially at L2-3 as seen on MRI study. Its mid line AP dimension is 7.5 mm. No neural foraminal bony encroachment is seen. At L3-4, there is degenerative disc disease with vacuum phenomena anterior and posterior osteophyte formation. There is diffuse disc bulging. Profound central canal stenosis is noted at L3-4 due to diffuse disc bulging and osteophytic ridging in combination with advanced facet hypertrophy and sclerosis. There is some ligamentum flavum hypertrophy as well. AP dimension of the of the spinal canal at this level appears to be 4.6 mm. There is discogenic spurring and facet hypertrophy producing mild neural foraminal encroachment. At the L4-5 level, there are similar changes with posterior osteophytic ridging and diffuse disc bulging. Degenerative disc disease with sclerosis and vacuum phenomenon and anterior osteophyte formation is evident. There is severe central canal stenosis at L4-5 due to this is the same factors. There appears to be a laminectomy defect on the left at L4-5. Bilateral L4-5 neural foraminal narrowing is seen, right greater than left due to facet hypertrophy and discogenic spurring. At L5-S1, there is a left laminectomy defect. Mild degenerative disc space narrowing is seen. No spinal stenosis is seen. There is bony neural foraminal narrowing on the left and the right due to facet hypertrophy. IMPRESSION: Advanced degenerative spondylosis changes. With multilevel moderate to marked central canal stenosis and multilevel neural foraminal narrowing as above. <Electronically signed by Sky Toscano > 07/09/20 1000
== END ==
LOC: M RAD 08:55
PROVIDERS: ATTEND Neurological Surgery
DX: M48.062 Spinal stenosis, lumbar region with neurogenic claudication (principal); M51.34 Other intervertebral disc degeneration, thoracic region; M51.36 Other intervertebral disc degeneration, lumbar region

== ENCOUNTER → 2020-07-15 | Outpatient (CLI) | payer MEDICARE, MEDICAID | LOC: M LABSMTC 14:17 | PROVIDERS: ATTEND Pediatrics | DX: Z11.52 Encounter for screening for COVID-19 (principal) ==

== ENCOUNTER 2020-10-14 14:12 | Outpatient (RCR) | payer MEDICARE, MEDICAID ==
[~2020-10-14 14:12] MED LIST changes: +OMEP40CA4 PO; -OMEP40CA97 PO
== END 2020-10-18 ==
LOC: M PT 14:12
PROVIDERS: ATTEND Physician Assistant
DX: M48.062 Spinal stenosis, lumbar region with neurogenic claudication (principal)

== ENCOUNTER 2020-11-16 13:00 | Outpatient (RCR) | payer MEDICARE, MEDICAID | END 2020-11-17 | LOC: M PT 13:00 | PROVIDERS: ATTEND Physician Assistant | DX: M48.062 Spinal stenosis, lumbar region with neurogenic claudication (principal) ==

== ENCOUNTER 2020-12-16 13:03 | Outpatient (RCR) | payer MEDICARE, MEDICAID | END 2020-12-18 | LOC: M PT 13:03 | PROVIDERS: ATTEND Physician Assistant | DX: M48.062 Spinal stenosis, lumbar region with neurogenic claudication (principal) ==

== ENCOUNTER → 2020-12-16 | Outpatient (CLI) | payer MEDICARE, MEDICAID ==
[~2020-12-16] MED LIST changes: -IBUP200T45 PO; +IBUP200T46 PO
== END ==
LOC: M LAB 14:04
PROVIDERS: ATTEND Family Medicine
DX: D64.9 Anemia, unspecified (principal)

== ENCOUNTER → 2020-12-16 | Outpatient (CLI) | payer MEDICARE, MEDICAID ==
[2020-12-16 15:04] LABS: BASO % 0.4 % (0.0-1.0); EOS # 0.7 10^3/uL (0.0-0.5); EOS % 13.6 % (0.0-3.0); HEMATOCRIT 33.5 % (42.0-52.0); HEMOGLOBIN 11.6 g/dl (13.5-17.5); LYMPH # 1.2 10^3/uL (1.5-5.0); LYMPH % 24.8 % (24.0-44.0); MEAN CORPUSCULAR HEMOGLOBIN 30.8 pg (27.0-33.0); MEAN CORPUSCULAR HGB CONC 34.6 g/dl (32.0-36.5); MEAN CORPUSCULAR VOLUME 88.9 fl (80.0-96.0); MONO # 0.2 10^3/uL (0.0-0.8); MONO % 4.9 % (2.0-8.0); NEUTROPHILS # 2.8 10^3/uL (1.5-8.5); NEUTROPHILS % 56.1 % (36.0-66.0); PLATELET COUNT, AUTOMATED 206 10^3/uL (150-450); RED BLOOD COUNT 3.77 10^6/uL (4.30-6.10); WHITE BLOOD COUNT 4.9 10^3/uL (4.0-10.0)
[2020-12-16 15:30] LABS: ALBUMIN 3.5 GM/DL (3.2-5.2); ALT/SGPT 24 U/L (12-78); BILIRUBIN,TOTAL 0.8 MG/DL (0.2-1.0); BLOOD UREA NITROGEN 15 MG/DL (7-18); CARBON DIOXIDE LEVEL 25 MEQ/L (21-32); CHLORIDE LEVEL 105 MEQ/L (98-107); CHOLESTEROL LEVEL 134 MG/DL (<200); CHOLESTEROL RISK RATIO 3.435 (<5); CREATININE FOR GFR 1.16 MG/DL (0.70-1.30); GLOMERULAR FILTRATION RATE > 60.0 (>42); GLUCOSE, FASTING 121 MG/DL (70-100); HDL CHOLESTEROL 39 MG/DL (>40); LDL CHOLESTEROL 57 MG/DL (<100); NON-HDL-C 95 MG/DL; POTASSIUM SERUM 4.1 MEQ/L (3.5-5.1); SODIUM LEVEL 139 MEQ/L (136-145); TOTAL PROTEIN 6.7 GM/DL (6.4-8.2); TRIGLYCERIDES LEVEL 189 MG/DL (<150)
[2020-12-16 15:36] LABS: MALB URINE SIEMENS 16.9 MG/L
== END ==
LOC: M LAB 14:06
PROVIDERS: ATTEND Student in an Organized Health Care Education/Training Program
DX: E78.2 Mixed hyperlipidemia (principal); N32.0 Bladder-neck obstruction; I10 Essential (primary) hypertension
CPT/HCPCS: 36415; 80053; 80061; 82043; 85025; G0103

== ENCOUNTER 2020-12-28 13:28 | Outpatient (RCR) | payer MEDICARE, MEDICAID | END 2021-01-17 | LOC: M PT 13:28 | PROVIDERS: ATTEND Physician Assistant | DX: M48.062 Spinal stenosis, lumbar region with neurogenic claudication (principal) ==

== ENCOUNTER → 2021-02-20 | Outpatient (CLI) | payer MEDICARE, MEDICAID ==
[2021-02-20 16:05] LABS: BLOOD UREA NITROGEN 17 MG/DL (7-18); CARBON DIOXIDE LEVEL 29 MEQ/L (21-32); CHLORIDE LEVEL 105 MEQ/L (98-107); CREATININE FOR GFR 1.14 MG/DL (0.70-1.30); GLOMERULAR FILTRATION RATE > 60.0 (>42); GLUCOSE, FASTING 142 MG/DL (70-100); POTASSIUM SERUM 3.9 MEQ/L (3.5-5.1); SODIUM LEVEL 141 MEQ/L (136-145)
== END ==
LOC: M LAB 02-17 11:17
PROVIDERS: ATTEND Urology
DX: N39.41 Urge incontinence (principal)

== ENCOUNTER → 2021-04-03 | Outpatient (CLI) | payer MEDICARE, MEDICAID ==
[2021-04-03 18:44] LABS: HEMATOCRIT 36.4 % (42.0-52.0); HEMOGLOBIN 12.3 g/dl (13.5-17.5); MEAN CORPUSCULAR HEMOGLOBIN 30.5 pg (27.0-33.0); MEAN CORPUSCULAR HGB CONC 33.8 g/dl (32.0-36.5); MEAN CORPUSCULAR VOLUME 90.3 fl (80.0-96.0); PLATELET COUNT, AUTOMATED 230 10^3/uL (150-450); RED BLOOD COUNT 4.03 10^6/uL (4.30-6.10); WHITE BLOOD COUNT 5.5 10^3/uL (4.0-10.0)
[2021-04-03 19:03] LABS: HEMOGLOBIN A1c 7.2 %
== END ==
LOC: M PLALAB 14:28
PROVIDERS: ATTEND Student in an Organized Health Care Education/Training Program
DX: D64.9 Anemia, unspecified (principal); I10 Essential (primary) hypertension; R73.01 Impaired fasting glucose; N39.41 Urge incontinence

== ENCOUNTER → 2021-07-20 | Outpatient (CLI) | payer MEDICAID, MEDICARE ==
[2021-07-20 15:56] LABS: ALBUMIN 3.7 GM/DL (3.2-5.2); BLOOD UREA NITROGEN 20 MG/DL (7-18); CALCIUM LEVEL 9.5 MG/DL (8.8-10.2); CARBON DIOXIDE LEVEL 27 MEQ/L (21-32); CHLORIDE LEVEL 105 MEQ/L (98-107); CREATININE FOR GFR 1.13 MG/DL (0.70-1.30); GLOMERULAR FILTRATION RATE > 60.0 (>42); GLUCOSE, FASTING 135 MG/DL (70-100); PHOSPHORUS LEVEL 2.8 MG/DL (2.5-4.9); SODIUM LEVEL 141 MEQ/L (136-145)
[2021-07-20 17:17] LABS: HEMOGLOBIN A1c 6.8 %
[2021-07-21 18:10] LABS: TESTOSTERONE FREE (DIRECT) 3.9 pg/mL (6.6-18.1)
== END ==
LOC: M PLALAB 10:18
PROVIDERS: ATTEND Family Medicine
DX: I10 Essential (primary) hypertension (principal); E11.9 Type 2 diabetes mellitus without complications; N52.9 Male erectile dysfunction, unspecified

== ENCOUNTER → 2021-08-17 | Outpatient (CLI) | payer MEDICAID, MEDICARE | LOC: M RAD 08:33 | PROVIDERS: ATTEND Student in an Organized Health Care Education/Training Program | DX: R19.05 Periumbilic swelling, mass or lump (principal) ==

== ENCOUNTER → 2021-11-30 | Outpatient (CLI) | payer MEDICARE ==
[~2021-11-30] MED LIST changes: +FISH10005 PO; -FISH7.5C PO; +INDA1.253 PO; -INDA125TA PO
[2021-11-30 14:11] LABS: ALBUMIN 3.7 GM/DL (3.2-5.2); ALT/SGPT 144 U/L (12-78); BLOOD UREA NITROGEN 15 MG/DL (7-18); CALCIUM LEVEL 9.1 MG/DL (8.8-10.2); CARBON DIOXIDE LEVEL 28 MEQ/L (21-32); CHLORIDE LEVEL 101 MEQ/L (98-107); CHOLESTEROL LEVEL 135 MG/DL (<200); CHOLESTEROL RISK RATIO 2.934 (<5); CREATININE FOR GFR 1.24 MG/DL (0.70-1.30); GLOMERULAR FILTRATION RATE > 60.0 (>42); GLUCOSE, FASTING 142 MG/DL (70-100); HDL CHOLESTEROL 46 MG/DL (>40); LDL CHOLESTEROL 49 MG/DL (<100); NON-HDL-C 89 MG/DL; SODIUM LEVEL 135 MEQ/L (136-145); TRIGLYCERIDES LEVEL 199 MG/DL (<150)
[2021-11-30 16:24] LABS: HEMOGLOBIN A1c 6.7 %
== END ==
LOC: M PLALAB 11:22
PROVIDERS: ATTEND Family Medicine
DX: E11.9 Type 2 diabetes mellitus without complications (principal); I10 Essential (primary) hypertension; E78.2 Mixed hyperlipidemia; N40.1 Benign prostatic hyperplasia with lower urinary tract symptoms

== ENCOUNTER → 2022-01-22 | Outpatient (CLI) | payer MEDICARE, MEDICAID | LOC: M RAD 09:52 | PROVIDERS: ATTEND Student in an Organized Health Care Education/Training Program | DX: R74.01 Elevation of levels of liver transaminase levels (principal); K76.0 Fatty (change of) liver, not elsewhere classified; R93.429 Abnormal radiologic findings on diagnostic imaging of unspecified kidney; R93.2 Abnormal findings on diagnostic imaging of liver and biliary tract ==

== ENCOUNTER → 2022-02-07 | Outpatient (CLI) | payer MEDICARE, MEDICAID ==
[2022-02-07 13:48] LABS: BASO % 0.2 % (0.0-1.0); EOS # 0.6 10^3/uL (0.0-0.5); EOS % 11.7 % (0.0-3.0); HEMATOCRIT 34.5 % (42.0-52.0); HEMOGLOBIN 11.4 g/dl (13.5-17.5); LYMPH # 1.4 10^3/uL (1.5-5.0); LYMPH % 25.8 % (24.0-44.0); MEAN CORPUSCULAR HEMOGLOBIN 31.3 pg (27.0-33.0); MEAN CORPUSCULAR VOLUME 94.8 fl (80.0-96.0); MONO # 0.4 10^3/uL (0.0-0.8); MONO % 8.3 % (2.0-8.0); NEUTROPHILS # 2.9 10^3/uL (1.5-8.5); NEUTROPHILS % 53.8 % (36.0-66.0); PLATELET COUNT, AUTOMATED 217 10^3/uL (150-450); RED BLOOD COUNT 3.64 10^6/uL (4.30-6.10); WHITE BLOOD COUNT 5.3 10^3/uL (4.0-10.0)
[2022-02-07 13:56] LABS: ERYTHROCYTE SEDIMENTATION RATE 24 mm/hr (0-20)
[2022-02-07 14:12] LABS: ALBUMIN 3.8 G/DL (3.2-5.2); ALKALINE PHOSPHATASE 152 U/L (46-116); ALT/SGPT 27 U/L (7.0-40); AST/SGOT 26 U/L (<34); BILIRUBIN,TOTAL 0.7 MG/DL (0.3-1.2); BLOOD UREA NITROGEN 22 MG/DL (9-23); CALCIUM LEVEL 9.2 MG/DL (8.3-10.6); CARBON DIOXIDE LEVEL 27 MMOL/L (20-31); CHLORIDE LEVEL 102 MMOL/L (98-107); CREATININE FOR GFR 1.12 MG/DL (0.70-1.30); GLOMERULAR FILTRATION RATE > 60.0 (>42); GLUCOSE, FASTING 112 MG/DL (74-106); POTASSIUM SERUM 4.5 MMOL/L (3.5-5.1); SODIUM LEVEL 138 MMOL/L (136-145); TOTAL PROTEIN 6.8 G/DL (5.7-8.2)
[2022-02-07 14:13] LABS: C REACTIVE PROTEIN QUANTITATIV < 0.40 MG/DL (<1.0)
[2022-02-07 14:26] LABS: HEPATITIS B SURFACE ANTIGEN NEGATIVE (NEGATIVE)
[2022-02-07 14:47] LABS: HEPATITIS C VIRUS ABY INDEX 0.2 INDEX (<0.8)
== END ==
LOC: M PLALAB 10:22
PROVIDERS: ATTEND Student in an Organized Health Care Education/Training Program
DX: R74.01 Elevation of levels of liver transaminase levels (principal); L08.9 Local infection of the skin and subcutaneous tissue, unspecified

== ENCOUNTER → 2022-02-22 | Outpatient (CLI) | payer MEDICAID, MEDICARE, OTHER | LOC: M RAD 15:02 | PROVIDERS: ATTEND Student in an Organized Health Care Education/Training Program | DX: R93.89 Abnormal findings on diagnostic imaging of other specified body structures (principal); K42.9 Umbilical hernia without obstruction or gangrene ==

== ENCOUNTER → 2022-07-20 | Outpatient (CLI) | payer OTHER, MEDICAID ==
[2022-07-20 14:06] LABS: HEMATOCRIT 32.1 % (42.0-52.0); HEMOGLOBIN 11.1 g/dl (13.5-17.5); MEAN CORPUSCULAR HEMOGLOBIN 31.7 pg (27.0-33.0); MEAN CORPUSCULAR HGB CONC 34.6 g/dl (32.0-36.5); MEAN CORPUSCULAR VOLUME 91.7 fl (80.0-96.0); PLATELET COUNT, AUTOMATED 158 10^3/uL (150-450); WHITE BLOOD COUNT 3.8 10^3/uL (4.0-10.0)
[2022-07-20 14:40] LABS: URIC ACID 6.5 MG/DL (3.7-9.2)
[2022-07-20 14:43] LABS: ALBUMIN 3.8 G/DL (3.2-5.2); ALKALINE PHOSPHATASE 132 U/L (46-116); ALT/SGPT 20 U/L (7.0-40); AST/SGOT 24 U/L (<34); BILIRUBIN,TOTAL 1.4 MG/DL (0.3-1.2); BLOOD UREA NITROGEN 27 MG/DL (9-23); CALCIUM LEVEL 8.1 MG/DL (8.3-10.6); CARBON DIOXIDE LEVEL 23 MMOL/L (20-31); CHLORIDE LEVEL 105 MMOL/L (98-107); CHOLESTEROL LEVEL 106 MG/DL (<200); CREATININE FOR GFR 1.16 MG/DL (0.70-1.30); CREATININE, URINE 195.7 MG/DL; GLOMERULAR FILTRATION RATE > 60.0 (>42); GLUCOSE, FASTING 93 MG/DL (74-106); HDL CHOLESTEROL 26.5 MG/DL (>40); LDL CHOLESTEROL 49.1 MG/DL (<100); NON-HDL-C 79.5 MG/DL; POTASSIUM SERUM 3.6 MMOL/L (3.5-5.1); SODIUM LEVEL 140 MMOL/L (136-145); TOTAL PROTEIN 6.3 G/DL (5.7-8.2); TRIGLYCERIDES LEVEL 152 MG/DL (<150)
[2022-07-20 14:47] LABS: MAU/CREAT RATIO 3.5 MCG/MG (0.0-30.0)
[2022-07-20 15:24] LABS: HEMOGLOBIN A1c 6.3 % (4.0-6.0)
== END ==
LOC: M PLALAB 11:26
PROVIDERS: ATTEND Family Medicine
DX: G47.33 Obstructive sleep apnea (adult) (pediatric) (principal); I73.9 Peripheral vascular disease, unspecified; E78.2 Mixed hyperlipidemia; I10 Essential (primary) hypertension; M10.072 Idiopathic gout, left ankle and foot; E11.51 Type 2 diabetes mellitus with diabetic peripheral angiopathy without gangrene

== ENCOUNTER 2022-10-18 13:52 | Emergency (ER) | payer OTHER, MEDICAID ==
[~2022-10-18] VITALS: Ht 185.4 cm; Wt 129.6 kg
[2022-10-18 15:18] LABS: BASO % 0.2 % (0.0-1.0); EOS # 0.1 10^3/uL (0.0-0.5); EOS % 0.5 % (0.0-3.0); HEMATOCRIT 36.1 % (42.0-52.0); HEMOGLOBIN 12.3 g/dl (13.5-17.5); LYMPH # 0.4 10^3/uL (1.5-5.0); LYMPH % 4.6 % (24.0-44.0); MEAN CORPUSCULAR HEMOGLOBIN 31.3 pg (27.0-33.0); MEAN CORPUSCULAR HGB CONC 34.1 g/dl (32.0-36.5); MEAN CORPUSCULAR VOLUME 91.9 fl (80.0-96.0); MONO # 0.3 10^3/uL (0.0-0.8); MONO % 2.6 % (2.0-8.0); NEUTROPHILS # 8.9 10^3/uL (1.5-8.5); NEUTROPHILS % 91.8 % (36.0-66.0); PLATELET COUNT, AUTOMATED 181 10^3/uL (150-450); RED BLOOD COUNT 3.93 10^6/uL (4.30-6.10); WHITE BLOOD COUNT 9.7 10^3/uL (4.0-10.0)
[2022-10-18 15:36] LABS: INR 1.25; PARTIAL THROMBOPLASTIN TIME 22.9 SECONDS (24.8-34.2); PROTHROMBIN TIME 15.4 SECONDS (12.5-14.5)
[2022-10-18 15:45] LABS: LIPASE 68 U/L (12-53)
[2022-10-18 15:46] LABS: CPK CREATINE PHOSPHOKINASE 184 U/L (46-171)
[2022-10-18 15:47] LABS: ALBUMIN 3.9 G/DL (3.2-5.2); ALKALINE PHOSPHATASE 598 U/L (46-116); ALT/SGPT 221 U/L (7.0-40); AST/SGOT 223 U/L (<34); BILIRUBIN,DIRECT 2.2 MG/DL (<0.4); BLOOD UREA NITROGEN 17 MG/DL (9-23); CARBON DIOXIDE LEVEL 25 MMOL/L (20-31); CHLORIDE LEVEL 102 MMOL/L (98-107); CK-MB VALUE MASS 1.6 NG/ML (<3.6); CREATININE FOR GFR 0.89 MG/DL (0.70-1.30); GLOMERULAR FILTRATION RATE > 60.0 (>42); GLUCOSE, FASTING 145 MG/DL (74-106); MB/CK RELATIVE INDEX 0.86 (< OR =4); POTASSIUM SERUM 4.4 MMOL/L (3.5-5.1); SODIUM LEVEL 138 MMOL/L (136-145); TOTAL PROTEIN 7.5 G/DL (5.7-8.2)
[2022-10-18 15:49] LABS: FREE T4 1.19 NG/DL (0.89-1.76); THYROID STIMULATING HORMONE 3.949 uIU/ML (0.55-4.78)
[2022-10-18] MEDS ORDERED: ISOVUE-370 76% 100ML VIAL As Ordered ONE (16:20)
[2022-10-18] MEDS ORDERED: NS 1,000 ML IV ONE ×2 (17:15→18:40)
[2022-10-18 17:21] LABS: CK-MB VALUE MASS 2.4 NG/ML (<3.6); MB/CK RELATIVE INDEX 1.18 (< OR =4)
[2022-10-18] MEDS ORDERED: MORPHINE 2 MG/ML 1ML VIAL IM ONE (17:55)
[2022-10-18] MEDS ORDERED: PIPERACILLIN/TAZOBACTAM SOD 4.5 GM in D5W MINI-BAG PLUS 50 ML IV ONE (18:40)
[2022-10-18] MEDS: MORPHINE 2 MG/ML 1ML VIAL IV PRN ×2 (19:19→19:47)
[2022-10-18 20:39] LABS: RSV AMPLIFICATION NEGATIVE (NEGATIVE)
[2022-10-18] MEDS ORDERED: ONDANSETRON 4MG 2ML VIAL IV ONE (20:40)
[2022-10-18] MEDS ORDERED: MORPHINE 4 MG/ML 1ML VIAL IV ONE ×2 (20:45→22:15)
[2022-10-19] MEDS ORDERED: MORPHINE 4 MG/ML 1ML VIAL IV ONE ×2 (01:45→07:55)
[2022-10-19] MEDS ORDERED: PIPERACILLIN/TAZOBACTAM SOD 4.5 GM in D5W MINI-BAG PLUS 50 ML IV ONE (07:05)
[2022-10-19 08:12] VITALS: BP 115/64; TEMP 98.8; O2SAT 94
== END 2022-10-19 08:15 | disposition short-term general hospital (02) ==
LOC: EDBD 13:52 → M ED 13:52
DX: K80.50 Calculus of bile duct without cholangitis or cholecystitis without obstruction (principal); E11.51 Type 2 diabetes mellitus with diabetic peripheral angiopathy without gangrene; N40.0 Benign prostatic hyperplasia without lower urinary tract symptoms; M48.00 Spinal stenosis, site unspecified; G47.33 Obstructive sleep apnea (adult) (pediatric); E78.5 Hyperlipidemia, unspecified; M10.9 Gout, unspecified; Z87.891 Personal history of nicotine dependence; Z79.899 Other long term (current) drug therapy; Z79.82 Long term (current) use of aspirin
CPT/HCPCS: 71045; 74177; 76705; 80048; 80076; 81001; 82550; 82553; 83690; 83880; 84439; 84443; 84484; 85025; 85610; 85730; 87040; 87631; 93005; 93041; 94760; 96365; 96366; 96367; 96372; 96375; 96376; 99285; J2405; J2543; Q9967

== ENCOUNTER → 2023-03-08 | Outpatient (CLI) | payer OTHER, MEDICAID | LOC: M RAD 14:04 | PROVIDERS: ATTEND Surgery | DX: I70.235 Atherosclerosis of native arteries of right leg with ulceration of other part of foot (principal); L97.512 Non-pressure chronic ulcer of other part of right foot with fat layer exposed ==

== ENCOUNTER → 2023-04-25 | Outpatient (REF) | payer OTHER, MEDICAID | LOC: M SFHCWOUN 17:17 | PROVIDERS: ATTEND Physician Assistant | DX: L97.512 Non-pressure chronic ulcer of other part of right foot with fat layer exposed (principal) ==

== ENCOUNTER 2023-05-14 15:00 | Outpatient (RCR) | payer OTHER, MEDICAID | END 2023-05-19 | LOC: M PT 15:00 | PROVIDERS: ATTEND Physician Assistant | DX: I89.0 Lymphedema, not elsewhere classified (principal) ==

== ENCOUNTER 2023-05-29 14:36 | Outpatient (RCR) | payer OTHER, MEDICAID | END 2023-06-18 | LOC: M PT 14:36 | PROVIDERS: ATTEND Physician Assistant | DX: I89.0 Lymphedema, not elsewhere classified (principal) ==

== ENCOUNTER 2023-07-16 15:58 | Observation (INO) | payer OTHER, MEDICAID ==
[~2023-07-16] VITALS: Ht 185.4 cm; Wt 130.9 kg
[2023-07-16 17:11] LABS: BASO % 0.2 % (0.0-1.0); EOS # 0.3 10^3/uL (0.0-0.5); EOS % 5.9 % (0.0-3.0); HEMATOCRIT 30.3 % (42.0-52.0); HEMOGLOBIN 10.7 g/dl (13.5-17.5); LYMPH # 0.9 10^3/uL (1.5-5.0); LYMPH % 19.8 % (24.0-44.0); MEAN CORPUSCULAR HEMOGLOBIN 33.5 pg (27.0-33.0); MEAN CORPUSCULAR HGB CONC 35.3 g/dl (32.0-36.5); MONO # 0.3 10^3/uL (0.0-0.8); MONO % 5.9 % (2.0-8.0); NEUTROPHILS # 3.1 10^3/uL (1.5-8.5); NEUTROPHILS % 67.8 % (36.0-66.0); PLATELET COUNT, AUTOMATED 134 10^3/uL (150-450); RED BLOOD COUNT 3.19 10^6/uL (4.30-6.10); WHITE BLOOD COUNT 4.6 10^3/uL (4.0-10.0)
[2023-07-16] MEDS: NS 500 ML IV ONE ×2 (17:16→18:50)
[2023-07-16 17:21] LABS: ERYTHROCYTE SEDIMENTATION RATE 14 mm/hr (0-20)
[2023-07-16 17:36] LABS: ETHYL ALCOHOL (ETHANOL) < 0.003 % (0.000-0.010)
[2023-07-16 17:37] LABS: SALICYLATE LEVEL < 3.0 MG/DL (<30)
[2023-07-16 17:38] LABS: ALBUMIN 3.7 G/DL (3.2-5.2); ALKALINE PHOSPHATASE 173 U/L (46-116); ALT/SGPT 23 U/L (7.0-40); AST/SGOT 24 U/L (<34); BILIRUBIN,DIRECT 0.3 MG/DL (<0.4); BILIRUBIN,TOTAL 0.9 MG/DL (0.3-1.2); BLOOD UREA NITROGEN 33 MG/DL (9-23); CALCIUM LEVEL 8.9 MG/DL (8.3-10.6); CARBON DIOXIDE LEVEL 27 MMOL/L (20-31); CHLORIDE LEVEL 105 MMOL/L (98-107); CK-MB VALUE MASS 3.6 NG/ML (<3.6); CPK CREATINE PHOSPHOKINASE 303 U/L (46-171); CREATININE FOR GFR 1.39 MG/DL (0.70-1.30); GLOMERULAR FILTRATION RATE 52.9 (>42); GLUCOSE, FASTING 122 MG/DL (74-106); MB/CK RELATIVE INDEX 1.18 (< OR =4); POTASSIUM SERUM 3.9 MMOL/L (3.5-5.1); SODIUM LEVEL 137 MMOL/L (136-145); TOTAL PROTEIN 6.5 G/DL (5.7-8.2)
[2023-07-16 17:40] LABS: THYROID STIMULATING HORMONE 13.487 uIU/ML (0.55-4.78)
[2023-07-16 17:49] LABS: PROCALCITONIN <0.04 ng/ml
[2023-07-16] MEDS: LIDOCAINE 2% 5ML JELLY UROJET TOP ONE (18:50)
[2023-07-16 19:22] LABS: AMPHETAMINES LEVEL URINE NEGATIVE (NEGATIVE); BARBITURATES URINE NEGATIVE (NEGATIVE); BENZODIAZEPINES URINE NEGATIVE (NEGATIVE); COCAINE METABOLITE URINE NEGATIVE (NEGATIVE); METHADONE URINE NEGATIVE (NEGATIVE); OPIATES URINE NEGATIVE (NEGATIVE)
[2023-07-16 19:23] LABS: CANNABINOIDS URINE NEGATIVE (NEGATIVE); PHENCYCLIDINE URINE NEGATIVE (NEGATIVE)
[2023-07-16] MEDS ORDERED: METF-838 PO (19:29)
[2023-07-16] MEDS ORDERED: MULTTAB61 PO (19:29)
[2023-07-16] MEDS ORDERED: SILD50TA2 PO (19:29)
[2023-07-16] MEDS ORDERED: TAMS1CAP17 PO (19:29)
[2023-07-16] MEDS ORDERED: HOME MED LIST COMPLETE! XX SCH (19:30)
[2023-07-16 19:37] LABS: CK-MB VALUE MASS 3.5 NG/ML (<3.6)
[2023-07-16 19:39] LABS: MB/CK RELATIVE INDEX 1.18 (< OR =4)
[2023-07-16] MEDS ORDERED: ACETAMINOPHEN TAB 650MG DOSE (2X325MG) PO PRN (20:10)
[2023-07-16] MEDS ORDERED: GLUCAGON INJ 1MG VIAL SC PRN (20:55)
[2023-07-16] MEDS ORDERED: GLUCOSE 4 GM CHEW PO PRN (20:55)
[2023-07-16] MEDS ORDERED: DEXTROSE 50% 50ML SYRINGE IV PRN (20:55)
[2023-07-16] MEDS: INSULIN LISPRO (NovoLOG) PER UNIT SC SCH (21:00)
[2023-07-16 21:03] LABS: MAGNESIUM LEVEL 1.8 MG/DL (1.8-2.4)
[2023-07-16 21:09] LABS: FREE T4 0.98 NG/DL (0.89-1.76)
[2023-07-16] MEDS: ATORVASTATIN 20 MG TAB PO SCH (21:11)
[2023-07-16] MEDS: NS 500 ML IV SCH (21:11)
[2023-07-16 22:10] VITALS: TEMP 97.9; O2SAT 98
[2023-07-16 23:08] VITALS: BP 110/68
[2023-07-16] MEDS: NORCO, ANEXSIA 5/325MG TABLET (HYDROcodone/ACETAMINOPHEN) PO ONE (23:42)
[2023-07-17] MEDS: NS 300 ML IV ONE (00:02)
[2023-07-17 01:31] VITALS: BP 104/78; TEMP 97.9; O2SAT 97
[2023-07-17 05:39] VITALS: BP 132/84; TEMP 97.7; O2SAT 96
[2023-07-17 06:16] LABS: HEMATOCRIT 31.7 % (42.0-52.0); HEMOGLOBIN 11.2 g/dl (13.5-17.5); MEAN CORPUSCULAR HEMOGLOBIN 33.5 pg (27.0-33.0); MEAN CORPUSCULAR HGB CONC 35.3 g/dl (32.0-36.5); MEAN CORPUSCULAR VOLUME 94.9 fl (80.0-96.0); PLATELET COUNT, AUTOMATED 141 10^3/uL (150-450); RED BLOOD COUNT 3.34 10^6/uL (4.30-6.10)
[2023-07-17 06:43] LABS: ALBUMIN 3.6 G/DL (3.2-5.2); ALKALINE PHOSPHATASE 172 U/L (46-116); ALT/SGPT 24 U/L (7.0-40); AST/SGOT 24 U/L (<34); BILIRUBIN,TOTAL 1.1 MG/DL (0.3-1.2); BLOOD UREA NITROGEN 24 MG/DL (9-23); CARBON DIOXIDE LEVEL 26 MMOL/L (20-31); CHLORIDE LEVEL 106 MMOL/L (98-107); GLOMERULAR FILTRATION RATE > 60.0 (>42); GLUCOSE, FASTING 92 MG/DL (74-106); MAGNESIUM LEVEL 1.8 MG/DL (1.8-2.4); SODIUM LEVEL 139 MMOL/L (136-145); TOTAL PROTEIN 6.4 G/DL (5.7-8.2)
[2023-07-17] MEDS: INSULIN LISPRO (NovoLOG) PER UNIT SC SCH (08:34)
[2023-07-17] MEDS: OMEPRAZOLE 20MG CAP PO SCH (08:47)
[2023-07-17] MEDS: ENOXAPARIN 40MG/0.4ML SYRINGE (J1650 PER 10MG) SC SCH (08:47)
[2023-07-17] MEDS: ASPIRIN 81MG ENTERIC TABLET PO SCH (08:47)
[2023-07-17] MEDS: TAMSULOSIN 0.4 MG CAP PO SCH (08:48)
[2023-07-17] MEDS: allopurinoL 100 MG TAB PO SCH (08:48)
[2023-07-17 10:00] VITALS: BP 134/74; TEMP 97.5; O2SAT 96
[2023-07-17 13:45] VITALS: BP 136/78; TEMP 98.1; O2SAT 99
[2023-07-17 18:30] VITALS: BP 138/76; TEMP 98.1; O2SAT 99
[2023-07-17] MEDS: NORCO, ANEXSIA 5/325MG TABLET (HYDROcodone/ACETAMINOPHEN) PO ONE (20:43)
[2023-07-17 20:45] VITALS: BP 134/60; TEMP 98.6; O2SAT 98
[2023-07-18 01:54] VITALS: BP 140/70; TEMP 97.7; O2SAT 98
[2023-07-18 06:10] VITALS: BP 130/68; TEMP 97.7; O2SAT 96
[2023-07-18 07:40] LABS: BASO % 0.5 % (0.0-1.0); EOS # 0.5 10^3/uL (0.0-0.5); EOS % 12.8 % (0.0-3.0); HEMATOCRIT 35.5 % (42.0-52.0); HEMOGLOBIN 12.1 g/dl (13.5-17.5); LYMPH # 1.4 10^3/uL (1.5-5.0); LYMPH % 34.6 % (24.0-44.0); MEAN CORPUSCULAR HEMOGLOBIN 32.4 pg (27.0-33.0); MEAN CORPUSCULAR HGB CONC 34.1 g/dl (32.0-36.5); MEAN CORPUSCULAR VOLUME 95.2 fl (80.0-96.0); MONO # 0.3 10^3/uL (0.0-0.8); MONO % 7.6 % (2.0-8.0); NEUTROPHILS # 1.8 10^3/uL (1.5-8.5); NEUTROPHILS % 44.3 % (36.0-66.0); RED BLOOD COUNT 3.73 10^6/uL (4.30-6.10); WHITE BLOOD COUNT 4.1 10^3/uL (4.0-10.0)
[2023-07-18 08:03] LABS: BLOOD UREA NITROGEN 18 MG/DL (9-23); CALCIUM LEVEL 9.4 MG/DL (8.3-10.6); CARBON DIOXIDE LEVEL 26 MMOL/L (20-31); CHLORIDE LEVEL 104 MMOL/L (98-107); CREATININE FOR GFR 1.01 MG/DL (0.70-1.30); GLOMERULAR FILTRATION RATE > 60.0 (>42); GLUCOSE, FASTING 102 MG/DL (74-106); MAGNESIUM LEVEL 1.8 MG/DL (1.8-2.4); POTASSIUM SERUM 4.1 MMOL/L (3.5-5.1); SODIUM LEVEL 138 MMOL/L (136-145)
[2023-07-18] MEDS: metFORMIN XR 500MG TAB *GLUCOPHAGE XR PO SCH (08:24)
[2023-07-18 09:04] LABS: PLATELET COUNT, AUTOMATED 177 10^3/uL (150-450)
[2023-07-18 10:00] VITALS: BP 130/60; TEMP 97.9; O2SAT 96
[2023-07-18 14:00] VITALS: BP 131/66; TEMP 97.9; O2SAT 97
[2023-07-18 19:00] VITALS: BP 124/70; TEMP 98.1; O2SAT 100
[2023-07-18 20:20] VITALS: BP 124/60; TEMP 97.9; O2SAT 99
[2023-07-19] MEDS: NORCO, ANEXSIA 5/325MG TABLET (HYDROcodone/ACETAMINOPHEN) PO PRN (00:08)
[2023-07-19 02:05] VITALS: BP 132/70; TEMP 97.7; O2SAT 98
[2023-07-19 05:57] LABS: BASO % 0.2 % (0.0-1.0); EOS # 0.6 10^3/uL (0.0-0.5); EOS % 13.1 % (0.0-3.0); HEMATOCRIT 31.3 % (42.0-52.0); HEMOGLOBIN 10.9 g/dl (13.5-17.5); LYMPH # 1.4 10^3/uL (1.5-5.0); LYMPH % 31.7 % (24.0-44.0); MEAN CORPUSCULAR HEMOGLOBIN 32.7 pg (27.0-33.0); MEAN CORPUSCULAR HGB CONC 34.8 g/dl (32.0-36.5); MONO # 0.3 10^3/uL (0.0-0.8); MONO % 7.4 % (2.0-8.0); NEUTROPHILS # 2.1 10^3/uL (1.5-8.5); NEUTROPHILS % 47.4 % (36.0-66.0); PLATELET COUNT, AUTOMATED 142 10^3/uL (150-450); RED BLOOD COUNT 3.33 10^6/uL (4.30-6.10); WHITE BLOOD COUNT 4.4 10^3/uL (4.0-10.0)
[2023-07-19 06:17] VITALS: BP 128/60; TEMP 97.9; O2SAT 96
[2023-07-19 06:17] LABS: BLOOD UREA NITROGEN 20 MG/DL (9-23); CALCIUM LEVEL 8.8 MG/DL (8.3-10.6); CARBON DIOXIDE LEVEL 24 MMOL/L (20-31); CHLORIDE LEVEL 105 MMOL/L (98-107); CREATININE FOR GFR 1.09 MG/DL (0.70-1.30); GLOMERULAR FILTRATION RATE > 60.0 (>42); GLUCOSE, FASTING 111 MG/DL (74-106); MAGNESIUM LEVEL 1.7 MG/DL (1.8-2.4); POTASSIUM SERUM 4.1 MMOL/L (3.5-5.1); SODIUM LEVEL 138 MMOL/L (136-145)
[2023-07-19] MEDS: MAG SULF 1GM/100ML (MAG RUN) 1 GM in IV 1 EA IV ONE (09:01)
[2023-07-19 10:00] VITALS: BP 130/68; TEMP 97.7; O2SAT 96
[2023-07-19] MEDS: CEFDINIR 300 MG CAP (OMNICEF) PO SCH (10:18)
[2023-07-19 14:00] VITALS: BP 110/68; TEMP 97.7; O2SAT 98
[2023-07-19] MEDS: LORazepam 2 MG/ML 1ML VIAL IV PRN (16:46)
[2023-07-19] MEDS: MORPHINE 2 MG/ML 1ML VIAL IV PRN (16:47)
[2023-07-19 18:00] VITALS: BP 118/72; TEMP 97.2; O2SAT 99
[2023-07-19 21:16] VITALS: BP 110/64; TEMP 97.7; O2SAT 97
[2023-07-20 02:00] VITALS: BP 124/72; TEMP 97.5; O2SAT 96
[2023-07-20 05:36] VITALS: BP 122/68; TEMP 97.7; O2SAT 98
[2023-07-20 06:10] LABS: BASO % 0.5 % (0.0-1.0); EOS # 0.6 10^3/uL (0.0-0.5); EOS % 14.1 % (0.0-3.0); HEMATOCRIT 33.2 % (42.0-52.0); HEMOGLOBIN 11.7 g/dl (13.5-17.5); LYMPH # 1.4 10^3/uL (1.5-5.0); LYMPH % 31.2 % (24.0-44.0); MEAN CORPUSCULAR HEMOGLOBIN 33.6 pg (27.0-33.0); MEAN CORPUSCULAR HGB CONC 35.2 g/dl (32.0-36.5); MEAN CORPUSCULAR VOLUME 95.4 fl (80.0-96.0); MONO # 0.3 10^3/uL (0.0-0.8); MONO % 7.3 % (2.0-8.0); NEUTROPHILS # 2.1 10^3/uL (1.5-8.5); NEUTROPHILS % 46.7 % (36.0-66.0); PLATELET COUNT, AUTOMATED 140 10^3/uL (150-450); RED BLOOD COUNT 3.48 10^6/uL (4.30-6.10); WHITE BLOOD COUNT 4.4 10^3/uL (4.0-10.0)
[2023-07-20 06:25] LABS: BLOOD UREA NITROGEN 22 MG/DL (9-23); CALCIUM LEVEL 9.5 MG/DL (8.3-10.6); CARBON DIOXIDE LEVEL 22 MMOL/L (20-31); CHLORIDE LEVEL 106 MMOL/L (98-107); CREATININE FOR GFR 0.96 MG/DL (0.70-1.30); GLOMERULAR FILTRATION RATE > 60.0 (>42); GLUCOSE, FASTING 114 MG/DL (74-106); MAGNESIUM LEVEL 1.7 MG/DL (1.8-2.4); POTASSIUM SERUM 4.5 MMOL/L (3.5-5.1); SODIUM LEVEL 137 MMOL/L (136-145)
[2023-07-20] MEDS: MAG SULF 1GM/100ML (MAG RUN) 1 GM in IV 1 EA IV ONE (07:48)
[2023-07-20 10:12] VITALS: BP 138/76; TEMP 97.7; O2SAT 98
[2023-07-20 14:00] VITALS: BP 120/70; TEMP 97.7; O2SAT 98
[2023-07-20 18:08] VITALS: BP 122/70; TEMP 98.1; O2SAT 97
[2023-07-20 22:00] VITALS: BP 110/64; TEMP 98.1; O2SAT 98
[2023-07-21] VITALS (7 sets, daily range): BP systolic 114–132; BP diastolic 64–72; TEMP 97.7–98.1; O2SAT 96–100
[2023-07-21 06:23] LABS: BASO % 0.2 % (0.0-1.0); EOS # 0.6 10^3/uL (0.0-0.5); HEMATOCRIT 32.3 % (42.0-52.0); HEMOGLOBIN 11.4 g/dl (13.5-17.5); LYMPH # 1.4 10^3/uL (1.5-5.0); LYMPH % 35.1 % (24.0-44.0); MEAN CORPUSCULAR HEMOGLOBIN 33.4 pg (27.0-33.0); MEAN CORPUSCULAR HGB CONC 35.3 g/dl (32.0-36.5); MEAN CORPUSCULAR VOLUME 94.7 fl (80.0-96.0); MONO # 0.3 10^3/uL (0.0-0.8); MONO % 8.1 % (2.0-8.0); NEUTROPHILS # 1.7 10^3/uL (1.5-8.5); NEUTROPHILS % 41.4 % (36.0-66.0); PLATELET COUNT, AUTOMATED 166 10^3/uL (150-450); RED BLOOD COUNT 3.41 10^6/uL (4.30-6.10); WHITE BLOOD COUNT 4.1 10^3/uL (4.0-10.0)
[2023-07-21 06:54] LABS: BLOOD UREA NITROGEN 24 MG/DL (9-23); CALCIUM LEVEL 9.1 MG/DL (8.3-10.6); CARBON DIOXIDE LEVEL 26 MMOL/L (20-31); CHLORIDE LEVEL 105 MMOL/L (98-107); CREATININE FOR GFR 1.17 MG/DL (0.70-1.30); GLOMERULAR FILTRATION RATE > 60.0 (>42); GLUCOSE, FASTING 107 MG/DL (74-106); MAGNESIUM LEVEL 1.8 MG/DL (1.8-2.4); POTASSIUM SERUM 4.3 MMOL/L (3.5-5.1); SODIUM LEVEL 137 MMOL/L (136-145)
[2023-07-21] MEDS: MAG SULF 1GM/100ML (MAG RUN) 1 GM in IV 1 EA IV ONE (07:56)
[2023-07-21] MEDS: ENOXAPARIN 40MG/0.4ML SYRINGE (J1650 PER 10MG) SC SCH (10:18)
[2023-07-22 03:20] VITALS: BP 132/78; TEMP 97.7; O2SAT 99
[2023-07-22 06:28] LABS: BASO % 0.5 % (0.0-1.0); EOS # 0.5 10^3/uL (0.0-0.5); EOS % 13.3 % (0.0-3.0); HEMATOCRIT 34.5 % (42.0-52.0); HEMOGLOBIN 12.1 g/dl (13.5-17.5); LYMPH # 1.3 10^3/uL (1.5-5.0); LYMPH % 33.2 % (24.0-44.0); MEAN CORPUSCULAR HGB CONC 35.1 g/dl (32.0-36.5); MONO # 0.3 10^3/uL (0.0-0.8); MONO % 8.5 % (2.0-8.0); NEUTROPHILS # 1.8 10^3/uL (1.5-8.5); NEUTROPHILS % 44.5 % (36.0-66.0); PLATELET COUNT, AUTOMATED 172 10^3/uL (150-450); RED BLOOD COUNT 3.67 10^6/uL (4.30-6.10)
[2023-07-22 06:52] LABS: BLOOD UREA NITROGEN 21 MG/DL (9-23); CALCIUM LEVEL 9.2 MG/DL (8.3-10.6); CARBON DIOXIDE LEVEL 26 MMOL/L (20-31); CHLORIDE LEVEL 106 MMOL/L (98-107); CREATININE FOR GFR 1.09 MG/DL (0.70-1.30); GLOMERULAR FILTRATION RATE > 60.0 (>42); GLUCOSE, FASTING 108 MG/DL (74-106); MAGNESIUM LEVEL 1.9 MG/DL (1.8-2.4); POTASSIUM SERUM 4.3 MMOL/L (3.5-5.1); SODIUM LEVEL 138 MMOL/L (136-145)
[2023-07-22 08:00] VITALS: BP 126/68; TEMP 97.7; O2SAT 99
[2023-07-22] MEDS ORDERED: CEFD300CAP PO (08:47)
[2023-07-22] MEDS ORDERED: HYDR-3715 PO (08:47)
[2023-07-22 12:00] VITALS: BP 126/70; TEMP 97.7; O2SAT 97
== END 2023-07-22 15:21 ==
LOC: EDBD 15:58 → EDSEX 15:58 → M ED 15:58 → M ED INP 15:59 → M MSPAV 22:05
PROVIDERS: ADMIT Preventive Medicine Undersea and Hyperbaric Medicine; ATTEND Internal Medicine
DX: I95.9 Hypotension, unspecified (principal); R53.1 Weakness; R53.83 Other fatigue; M21.371 Foot drop, right foot; R29.6 Repeated falls; Z98.1 Arthrodesis status; E83.42 Hypomagnesemia; R94.4 Abnormal results of kidney function studies; R31.9 Hematuria, unspecified; B96.4 Proteus (mirabilis) (morganii) as the cause of diseases classified elsewhere; E87.20 Acidosis, unspecified; M19.071 Primary osteoarthritis, right ankle and foot; I25.10 Atherosclerotic heart disease of native coronary artery without angina pectoris; I10 Essential (primary) hypertension; E11.40 Type 2 diabetes mellitus with diabetic neuropathy, unspecified; G47.33 Obstructive sleep apnea (adult) (pediatric); L97.519 Non-pressure chronic ulcer of other part of right foot with unspecified severity; A49.01 Methicillin susceptible Staphylococcus aureus infection, unspecified site; N40.0 Benign prostatic hyperplasia without lower urinary tract symptoms; M10.9 Gout, unspecified; E78.5 Hyperlipidemia, unspecified; M79.641 Pain in right hand; M77.11 Lateral epicondylitis, right elbow; M19.021 Primary osteoarthritis, right elbow; M19.031 Primary osteoarthritis, right wrist; M47.814 Spondylosis without myelopathy or radiculopathy, thoracic region; M47.816 Spondylosis without myelopathy or radiculopathy, lumbar region; M47.817 Spondylosis without myelopathy or radiculopathy, lumbosacral region; M43.16 Spondylolisthesis, lumbar region; M85.80 Other specified disorders of bone density and structure, unspecified site; Z87.828 Personal history of other (healed) physical injury and trauma; Z79.899 Other long term (current) drug therapy; Z79.84 Long term (current) use of oral hypoglycemic drugs; Z79.82 Long term (current) use of aspirin
CPT/HCPCS: 36415; 70450; 70551; 71045; 72114; 72125; 72131; 72192; 73070; 73090; 73200; 73630; 74176; 80048; 80053; 80076; 80143; 80307; 81001; 82077; 82140; 82550; 82553; 83605; 83735; 84145; 84439; 84443; 84484; 85025; 85027; 85652; 86140; 87040; 87070; 87077; 87088; 87186; 87486; 87581; 87633; 87798; 93005; 93041; 94760; 96361; 96365; 96366; 96375; 97161; 97165; 97530; 97535; 99285; G0378; J2060; J3475

== ENCOUNTER → 2023-09-27 | Outpatient (CLI) | payer OTHER, MEDICAID ==
[~2023-09-27] MED LIST changes: +CEFD300CAP PO; +HYDR-3715 PO; +METF-838 PO; +MULTTAB61 PO; +SILD50TA2 PO; +TAMS1CAP17 PO
[2023-09-27 13:29] LABS: HEMATOCRIT 32.1 % (42.0-52.0); HEMOGLOBIN 11.1 g/dl (13.5-17.5); MEAN CORPUSCULAR HEMOGLOBIN 32.7 pg (27.0-33.0); MEAN CORPUSCULAR HGB CONC 34.6 g/dl (32.0-36.5); MEAN CORPUSCULAR VOLUME 94.7 fl (80.0-96.0); PLATELET COUNT, AUTOMATED 165 10^3/uL (150-450); RED BLOOD COUNT 3.39 10^6/uL (4.30-6.10); WHITE BLOOD COUNT 4.4 10^3/uL (4.0-10.0)
[2023-09-27 13:41] LABS: HEMOGLOBIN A1c 5.9 % (4.0-6.0)
[2023-09-27 13:54] LABS: CREATININE, URINE 193.9 MG/DL
[2023-09-27 13:55] LABS: MAU/CREAT RATIO 4.6 MCG/MG (0.0-30.0); URIC ACID 6.2 MG/DL (3.7-9.2)
[2023-09-27 13:58] LABS: ALBUMIN 3.7 G/DL (3.2-5.2); ALKALINE PHOSPHATASE 181 U/L (46-116); ALT/SGPT 22 U/L (7.0-40); AST/SGOT 21 U/L (<34); BILIRUBIN,TOTAL 0.8 MG/DL (0.3-1.2); BLOOD UREA NITROGEN 16 MG/DL (9-23); CALCIUM LEVEL 9.1 MG/DL (8.3-10.6); CARBON DIOXIDE LEVEL 26 MMOL/L (20-31); CHLORIDE LEVEL 106 MMOL/L (98-107); CHOLESTEROL LEVEL 115 MG/DL (<200); CHOLESTEROL RISK RATIO 3.54 (<5); CREATININE FOR GFR 1.16 MG/DL (0.70-1.30); FOLATE 18.1 NG/ML (>5.4); GLOMERULAR FILTRATION RATE > 60.0 (>42); GLUCOSE, FASTING 101 MG/DL (74-106); HDL CHOLESTEROL 32.4 MG/DL (>40); LDL CHOLESTEROL 39.6 MG/DL (<100); NON-HDL-C 82.6 MG/DL; POTASSIUM SERUM 4.1 MMOL/L (3.5-5.1); SODIUM LEVEL 137 MMOL/L (136-145); THYROID STIMULATING HORMONE 6.685 uIU/ML (0.55-4.78); TOTAL PROTEIN 6.9 G/DL (5.7-8.2); TRIGLYCERIDES LEVEL 215 MG/DL (<150)
[2023-09-27 13:59] LABS: VITAMIN B12 LEVEL 830 PG/ML (211-911)
== END ==
LOC: M LAB 12:25
PROVIDERS: ATTEND Family Medicine
DX: G47.33 Obstructive sleep apnea (adult) (pediatric) (principal); G56.23 Lesion of ulnar nerve, bilateral upper limbs; E11.9 Type 2 diabetes mellitus without complications; I10 Essential (primary) hypertension; E78.2 Mixed hyperlipidemia; E78.6 Lipoprotein deficiency; M10.072 Idiopathic gout, left ankle and foot

== ENCOUNTER → 2023-11-16 | Outpatient (CLI) | payer OTHER, MEDICAID ==
[2023-11-16 12:31] LABS: FREE T4 1.26 NG/DL (0.89-1.76); THYROID STIMULATING HORMONE 5.507 uIU/ML (0.55-4.78)
== END ==
LOC: M LAB 11:12
PROVIDERS: ATTEND Family Medicine
DX: E03.9 Hypothyroidism, unspecified (principal)

== ENCOUNTER 2023-11-28 14:48 | Outpatient (RCR) | payer OTHER, MEDICAID ==
[2023-12-03] MEDS ORDERED: ALLO100T PO (18:24)
[2023-12-03] MEDS ORDERED: OMEP40CA5 PO (18:27)
[2023-12-03] MEDS ORDERED: LEVO25TA5 PO (18:27)
[2023-12-03] MEDS ORDERED: GABA-1171 PO (18:27)
[2023-12-03] MEDS ORDERED: NABU-71 PO ×2 (18:27)
== END 2023-12-19 ==
LOC: M PT 14:48
PROVIDERS: ATTEND Physician Assistant
DX: I89.0 Lymphedema, not elsewhere classified (principal)

== ENCOUNTER 2024-01-09 11:57 | Outpatient (RCR) | payer OTHER, MEDICAID ==
[~2024-01-09 11:57] MED LIST changes: +GABA-1171 PO; +LEVO25TA5 PO; +NABU-71 PO; +OMEP40CA5 PO
== END 2024-01-18 ==
LOC: M PT 11:57
PROVIDERS: ATTEND Hospitalist
DX: R26.89 Other abnormalities of gait and mobility (principal)

== ENCOUNTER 2024-02-14 12:58 | Outpatient (RCR) | payer OTHER, MEDICAID | END 2024-02-18 | LOC: M PT 12:58 | PROVIDERS: ATTEND Hospitalist | DX: E26.89 Other hyperaldosteronism (principal) ==

== ENCOUNTER 2024-03-19 12:00 | Outpatient (RCR) | payer MEDICARE, MEDICAID | END 2024-03-20 | LOC: M PT 12:00 | PROVIDERS: ATTEND Hospitalist | DX: R26.89 Other abnormalities of gait and mobility (principal) ==

== ENCOUNTER 2024-04-20 12:13 | Outpatient (RCR) | payer MEDICARE, MEDICAID | END 2024-05-18 | LOC: M PT 12:13 | PROVIDERS: ATTEND Family Medicine | DX: Z74.09 Other reduced mobility (principal); Z99.3 Dependence on wheelchair ==

== ENCOUNTER → 2024-05-08 | Outpatient (CLI) | payer MEDICARE, MEDICAID ==
[2024-05-08 14:27] LABS: BASO % 0.2 % (0.0-1.0); EOS # 0.4 10^3/uL (0.0-0.5); EOS % 7.1 % (0.0-3.0); HEMATOCRIT 33.6 % (42.0-52.0); HEMOGLOBIN 11.7 g/dl (13.5-17.5); LYMPH # 0.7 10^3/uL (1.5-5.0); LYMPH % 11.9 % (24.0-44.0); MEAN CORPUSCULAR HEMOGLOBIN 32.8 pg (27.0-33.0); MEAN CORPUSCULAR HGB CONC 34.8 g/dl (32.0-36.5); MEAN CORPUSCULAR VOLUME 94.1 fl (80.0-96.0); MONO # 0.3 10^3/uL (0.0-0.8); NEUTROPHILS # 4.7 10^3/uL (1.5-8.5); NEUTROPHILS % 75.3 % (36.0-66.0); PLATELET COUNT, AUTOMATED 198 10^3/uL (150-450); RED BLOOD COUNT 3.57 10^6/uL (4.30-6.10); WHITE BLOOD COUNT 6.2 10^3/uL (4.0-10.0)
[2024-05-08 14:52] LABS: ALBUMIN 3.7 G/DL (3.2-5.2); BILIRUBIN,TOTAL 0.8 MG/DL (0.3-1.2); CHOLESTEROL RISK RATIO 3.46 (<5); CREATININE FOR GFR 1.27 MG/DL (0.70-1.30); GLOMERULAR FILTRATION RATE 58.5 (>42); HDL CHOLESTEROL 34.6 MG/DL (>40); LDL CHOLESTEROL 38.8 MG/DL (<100); NON-HDL-C 85.4 MG/DL; POTASSIUM SERUM 4.2 MMOL/L (3.5-5.1); PSA SCREENING 0.51 NG/ML (< 4.00); TOTAL PROTEIN 7.6 G/DL (5.7-8.2)
[2024-05-08 14:56] LABS: FREE T4 1.15 NG/DL (0.89-1.76)
[2024-05-08 14:57] LABS: HEMOGLOBIN A1c 6.6 % (4.0-6.0); THYROID STIMULATING HORMONE 7.065 uIU/ML (0.55-4.78)
== END ==
LOC: M PLALAB 11:56
DX: D64.9 Anemia, unspecified (principal); G47.33 Obstructive sleep apnea (adult) (pediatric); E03.8 Other specified hypothyroidism; N40.1 Benign prostatic hyperplasia with lower urinary tract symptoms; E11.9 Type 2 diabetes mellitus without complications; E78.2 Mixed hyperlipidemia; Z12.5 Encounter for screening for malignant neoplasm of prostate

== ENCOUNTER 2024-06-05 05:43 | Emergency (ER) | payer MEDICARE, MEDICAID ==
[~2024-06-05] VITALS: Ht 182.9 cm; Wt 125.3 kg
[2024-06-05 05:54] VITALS: TEMP 98.5
[2024-06-05] MEDS ORDERED: ISOVUE-370 76% 100ML VIAL As Ordered ONE (07:57)
[2024-06-05] MEDS ORDERED: ONDANSETRON 4MG 2ML VIAL As Ordered ONE (08:01)
[2024-06-05] MEDS ORDERED: MORPHINE 4 MG/ML 1ML VIAL As Ordered ONE (08:01)
[2024-06-05] MEDS: ONDANSETRON 4MG 2ML VIAL IV ONE (08:04)
[2024-06-05] MEDS: MORPHINE 4 MG/ML 1ML VIAL IV ONE (08:04)
[2024-06-05 08:12] LABS: KETONE, URINE AUTO RFX NEGATIVE (NEGATIVE); MUCUS, URINE RFX SMALL (NEGATIVE); NITRITE, URINE AUTO RFX NEGATIVE (NEGATIVE); RBC, URINE AUTO RFX 4 /HPF (0-3); SQUAM EPITHELIAL CELL UR AURFX 1 /HPF (0-6)
[2024-06-05 08:13] LABS: LEUKOCYTE ESTERASE UR AUTO RFX 2+ (NEGATIVE); WBC, URINE AUTO RFX 34 /HPF (0-3)
[2024-06-05 08:14] LABS: BASO % 0.3 % (0.0-1.0); HEMATOCRIT 29.9 % (42.0-52.0); HEMOGLOBIN 10.3 g/dl (13.5-17.5); LYMPH # 1.2 10^3/uL (1.5-5.0); LYMPH % 15.6 % (24.0-44.0); MEAN CORPUSCULAR HEMOGLOBIN 33.4 pg (27.0-33.0); MEAN CORPUSCULAR HGB CONC 34.4 g/dl (32.0-36.5); MEAN CORPUSCULAR VOLUME 97.1 fl (80.0-96.0); MONO # 0.8 10^3/uL (0.0-0.8); MONO % 9.6 % (2.0-8.0); NEUTROPHILS # 5.9 10^3/uL (1.5-8.5); PLATELET COUNT, AUTOMATED 188 10^3/uL (150-450); RED BLOOD COUNT 3.08 10^6/uL (4.30-6.10)
[2024-06-05 08:26] LABS: INR 1.06; PARTIAL THROMBOPLASTIN TIME 30.8 SECONDS (24.8-34.2); PROTHROMBIN TIME 14.1 SECONDS (12.5-14.5)
[2024-06-05 08:32] LABS: CK-MB VALUE MASS 6.7 NG/ML (<3.6)
[2024-06-05 08:33] LABS: ETHYL ALCOHOL (ETHANOL) < 0.003 % (0.000-0.010)
[2024-06-05 08:35] LABS: ALBUMIN 3.3 G/DL (3.2-5.2); ALKALINE PHOSPHATASE 133 U/L (40-129); ALT/SGPT 22 U/L (7.0-40); AST/SGOT 67 U/L (<34); BILIRUBIN,DIRECT 0.9 MG/DL (<0.4); BILIRUBIN,TOTAL 2.1 MG/DL (0.3-1.2); BLOOD UREA NITROGEN 36 MG/DL (9-23); CALCIUM LEVEL 9.3 MG/DL (8.3-10.6); CARBON DIOXIDE LEVEL 25 MMOL/L (20-31); CHLORIDE LEVEL 100 MMOL/L (98-107); CREATININE FOR GFR 1.63 MG/DL (0.70-1.30); GLOMERULAR FILTRATION RATE 43.1 (>42); GLUCOSE, FASTING 144 MG/DL (74-106); POTASSIUM SERUM 4.1 MMOL/L (3.5-5.1); SALICYLATE LEVEL < 3.0 MG/DL (<30); SODIUM LEVEL 137 MMOL/L (136-145); TOTAL PROTEIN 7.4 G/DL (5.7-8.2)
[2024-06-05 08:36] LABS: THYROID STIMULATING HORMONE 3.999 uIU/ML (0.55-4.78)
[2024-06-05 08:37] LABS: ERYTHROCYTE SEDIMENTATION RATE 66 mm/hr (0-20)
[2024-06-05 08:42] LABS: AMPHETAMINES LEVEL URINE NEGATIVE (NEGATIVE); BARBITURATES URINE NEGATIVE (NEGATIVE); BENZODIAZEPINES URINE NEGATIVE (NEGATIVE); CANNABINOIDS URINE NEGATIVE (NEGATIVE); COCAINE METABOLITE URINE NEGATIVE (NEGATIVE); METHADONE URINE NEGATIVE (NEGATIVE); OPIATES URINE NEGATIVE (NEGATIVE); PHENCYCLIDINE URINE NEGATIVE (NEGATIVE)
[2024-06-05 08:51] LABS: CPK CREATINE PHOSPHOKINASE 3401 U/L (46-171); MB/CK RELATIVE INDEX 0.19 (< OR =4)
[2024-06-05] MEDS: NS 500 ML IV ONE (09:03)
[2024-06-05 09:04] LABS: C REACTIVE PROTEIN QUANTITATIV 17.53 MG/DL (<1.0)
[2024-06-05 10:00] LABS: CK-MB VALUE MASS 7.7 NG/ML (<3.6)
[2024-06-05 10:15] LABS: MB/CK RELATIVE INDEX 0.19 (< OR =4)
[2024-06-05] MEDS: NS (Normal Saline) 0.9% 1,000 ML IV ONE (10:23)
[2024-06-05] MEDS: PIPERACILLIN/TAZOBACTAM SOD 4.5 GM in DEXTROSE 5% (D5W) ADV/MINI-BAG 50 ML IV ONE (10:24)
[2024-06-05 11:00] VITALS: BP 104/51; O2SAT 100
[2024-06-05 11:36] LABS: CK-MB VALUE MASS 6.4 NG/ML (<3.6)
[2024-06-05 11:54] LABS: MB/CK RELATIVE INDEX 0.14 (< OR =4)
== END 2024-06-05 11:17 | disposition short-term general hospital (02) ==
LOC: M ED 05:43
DX: S06.360A Traumatic hemorrhage of cerebrum, unspecified, without loss of consciousness, initial encounter (principal); S06.5X0A Traumatic subdural hemorrhage without loss of consciousness, initial encounter; M62.82 Rhabdomyolysis; L03.115 Cellulitis of right lower limb; W19.XXXA Unspecified fall, initial encounter; Y92.099 Unspecified place in other non-institutional residence as the place of occurrence of the external cause; Y93.9 Activity, unspecified; Y99.9 Unspecified external cause status; M50.30 Other cervical disc degeneration, unspecified cervical region; M47.896 Other spondylosis, lumbar region; I10 Essential (primary) hypertension; E11.9 Type 2 diabetes mellitus without complications; G47.33 Obstructive sleep apnea (adult) (pediatric); Z87.891 Personal history of nicotine dependence; Z79.82 Long term (current) use of aspirin; Z79.84 Long term (current) use of oral hypoglycemic drugs; Z79.899 Other long term (current) drug therapy
CPT/HCPCS: 70450; 70496; 70498; 71045; 72125; 72128; 72131; 72170; 80047; 80048; 80076; 80143; 80307; 81001; 82077; 82140; 82550; 82553; 83605; 84443; 84484; 85025; 85610; 85652; 85730; 86140; 86850; 86870; 86900; 86901; 87040; 87088; 87186; 87486; 87581; 87633; 87798; 93005; 93041; 93971; 94760; 96361; 96365; 96375; 99285; J2405; J2543; Q9967

== ENCOUNTER → 2024-06-17 | Outpatient (RCR) | payer MEDICARE, MEDICAID | LOC: M PT 06-03 12:54 | PROVIDERS: ATTEND Physician Assistant | DX: I73.9 Peripheral vascular disease, unspecified (principal); I89.0 Lymphedema, not elsewhere classified ==